=== PATIENT | female | born 1985 ===

== ENCOUNTER 2022-10-17 13:49 | Outpatient (REF) | payer MEDICAID, SELFPAY ==
[2022-10-17 16:54] LABS: TSH reflex Free T4 0.94 uIU/mL (0.32-4.0)
[2022-10-18 11:35] LABS: CT PCR NOT DETECTED (Not Detect.); NG PCR NOT DETECTED (Not Detect.)
[2022-10-18 14:05] LABS: BV Int Neg Control Negative (Negative); BV Int Pos Control Positive (Positive)
== END 2022-10-17 13:50 | disposition home or self-care (01) ==
LOC: HO.HHCL 13:49
PROVIDERS: Visit Provider Nurse Practitioner Family
DX: R10.2 Pelvic and perineal pain (principal); E03.9 Hypothyroidism, unspecified
CPT/HCPCS: 0353U; 36415; 84443; 87480; 87510; 87660

== ENCOUNTER 2022-12-07 11:50 | Outpatient (REF) | payer MEDICAID, OTHER, SELFPAY ==
[2022-12-07 13:40] LABS: Hematocrit 37.7 % (37.0-47.0); Hemoglobin 12.1 g/dl (12.0-16.0)
[2022-12-07 14:35] LABS: Estimated Average Glucose 97 mg/dL
[2022-12-07 14:47] LABS: Anion Gap 12 (12-20); Blood Urea Nitrogen 9 mg/dL (9-16); Calcium 9.8 mg/dL (8.4-10.2); Carbon Dioxide 27 mmol/L (22-29); Chloride 103 mmol/L (96-108); Cholesterol 177 mg/dL (<200); Estimated Glomerular Filt Rate > 60; Glucose Random 80 mg/dL (60-115); HDL Cholesterol 57 mg/dL (>40); LDL Cholesterol Calculated 109 mg/dL (<100); Potassium 3.8 mmol/L (3.3-5.1); Sodium 138 mmol/L (135-145); Triglycerides 59 mg/dL (<150)
[2022-12-08 07:27] LABS: HIV AB/AG Nonreactive (Nonreactive); HIV Num 1 0.05 S/CO (0.00-0.99); ~HepC Num1 0.09 S/CO (0.00-0.79); ~Hepatitis C Antibody Nonreactive (Nonreactive)
[2022-12-08 07:39] LABS: Syphilis Screen Nonreactive (Nonreactive)
== END 2022-12-07 11:51 | disposition home or self-care (01) ==
LOC: HO.HHCL 11:50
PROVIDERS: Visit Provider Nurse Practitioner Primary Care
DX: Z00.00 Encounter for general adult medical examination without abnormal findings (principal); N92.0 Excessive and frequent menstruation with regular cycle; Z11.3 Encounter for screening for infections with a predominantly sexual mode of transmission; Z13.220 Encounter for screening for lipoid disorders
CPT/HCPCS: 36415; 80048; 80061; 83036; 85014; 85018; 86780; 86803; 87389

== ENCOUNTER 2023-01-26 13:20 | Emergency (ER) | payer MEDICAID, OTHER, SELFPAY ==
--- NOTE | ~2023-01-26 | XR_ITS ---
EXAMINATION: XR CHEST CLINICAL INFORMATION: Covid positive. COMPARISON: None available. TECHNIQUE: Frontal view of the chest was obtained. FINDINGS: Normal appearance of the cardiomediastinal silhouette. No focal airspace opacities, pleural effusion or pneumothorax. No acute osseous findings. Visualized upper abdomen is within normal limits. XR/XR chest 1V IMPRESSION: No acute cardiopulmonary findings.
[2023-01-26 13:25] VITALS: BP 102/70; PULSE 76; O2SAT 100
--- NOTE | 2023-01-26 13:26 | ED.GENADULT ---
HPI - General Adult General Chief complaint: Syncope Stated complaint: SYNCOPAL EPISODE Time Seen by Provider: 01/26/23 16:50 History of Present Illness HPI narrative: 37 y/o F patient; without significant PMH; presents from the store with reported syncopal episode while exiting the facility. The patient states while in the store she began to feel dizzy and unwell. She developed epigastric abdominal pain and decided to leave the store to go home. She collapsed on leaving the store and another customer lowered her to the ground. She did not have trauma or head strike. On EMS arrival the patient had two episodes of nausea/vomiting with improvement in her epigastric abdominal pain. She then had an episode of diarrhea on arrival at [facility]. Patient has + sick contact at home. She endorses recent generalized headache, non-productive cough, and diffuse body fatigue. She denies recreational drug/alcohol/smoking. She denies chance of . She is currently at the end of her menstrual cycle, which she states is typically regular. Related Data Previous Rx's Medication Instructions Recorded ondansetron 4 mg disintegrating 4 mg PO Q8H PRN nausea and 01/26/23 tablet vomiting 7 days #14 tabs Allergies Allergy/AdvReac Type Severity Reaction Status Date / Time No Known Allergies Allergy Verified 01/26/23 13:57 Review of Systems Review of Systems: Yes all other systems are reviewed and are negative Neurologic: Denies Abnormal speech present and Denies Sensory deficit (Neuro) [facility] Past Medical History Attestation statement: The following information was validated with the patient. Source: old records reviewed Social History Social History Smoked in Last 30 Days: No Use of substances other than those prescribed or required for medical reasons: No Advance Directives: No Advance Directives Information Provided: Yes Patient : No Physical Exam ED Vital Signs: Vital Signs - 24 hr 01/26/23 13:58 01/26/23 17:09 01/26/23 17:09 Temperature 96.8 F Pulse Rate 73 73 Respiratory Rate 16 16 Blood Pressure 99/68 101/65 Pulse Oximetry 100 100 100 Oxygen Delivery Method Room Air Room Air Room Air BMI result Body Mass Index 22.3 Patient is afebrile and hemodynamically stable. Const General: cooperative, no acute distress and other (Pale) Orientation/consciousness: [facility]: Yes normal to inspection and Yes atraumatic Ears: external ears normal General nose exam: Normal nares present Mouth: Normal oral and palatal mucosa present Throat: Yes posterior oropharynx normal, Yes tonsils normal and Yes uvula midline Eyes General: appearance normal, both eyes and all related structures Pupils: Equal, round and reactive pupils present EOM: EOMs intact bilaterally Neck Neck: Yes full ROM, Yes supple and No tender Chest Chest palpation & inspection: normal inspection of the chest and normal palpation of entire chest wall Resp Effort & Inspection: normal respiratory effort, able to speak in complete sentences and no respiratory distress Auscultation: clear to auscultation bilaterally Cardio Rate: regular rate Rhythm: regular rhythm Peripheral pulses: Peripheral pulses 2+ throughout GI Inspection: Yes normal to inspection and No distended Palpation (GI): Soft to palpation, not firm, Tenderness to palpation present (GI), no guarding, not rigid and Other GI palpation findings present (Mild epigastric abdominal tenderness) Auscultation: normal bowel sounds Neuro General: patient oriented x3 Cranial nerves: Yes Equal, round and reactive pupils present Cognition (Neuro): normal cognition Speech: No Abnormal speech present Gait exam (Neuro): Normal gait present Motor exam (neuro): 5/5 motor strength present throughout Sensory Exam: No Sensory deficit (Neuro) Course Course Course Narrative: RME- 37-year-old female presents for evaluation of a syncopal episode at work today. She reports feeling mild abdominal pain, dizziness earlier. She stepped outside to get some pressure and collapsed. A bystander and caught her before she fell to the ground. Plan for EKG, labs Reevaluation(s) Reevaluation #1: Patient is afebrile and hemodynamically stable. Suspect symptoms and syncope 2/2 to viral syndrome. Ordered COVID/Flu/RSV testing. Reviewed triage labs - mild leukopenia, appropriate Hgb, negative beta hcg. UA ordered by triage - patient without dysuria, frequency, burning. Suspect contaminated sample, 3+ blood due to patient's menstruation cycle which is currently occurring. Will plan for IV to provide IVF 1L and Zofran 4mg IV. Time: 18:40 Reevaluation #2: COVID swab positive. Pending CXR. Time: 19:20 Reevaluation #3: CXR without acute disease. Patient able to PO trial. Plan: Discharge to home with PCP follow up Return precautions given Time: 19:45 Medications Administered Discontinued Medications Generic Name Dose Route Start Last Admin Trade Name Sabrina PRN Reason Stop Dose Admin Sodium Chloride 1,000 mls @ 999 mls/hr 01/26/23 17:30 01/26/23 19:31 Ns IV 01/26/23 18:30 Infused .Q1H1M REBEL Infusion Ondansetron HCl 4 mg 01/26/23 17:25 01/26/23 17:45 Ondansetron Hcl 4 Mg/2 Ml Vial IVPUSH 01/26/23 17:26 4 mg ONCE ONE Administration Medical Decision Making Lab Data 01/26/23 13:40 01/26/23 13:40 Labs: Lab Results 01/26/23 01/26/23 01/26/23 Range/Units 13:40 15:33 18:38 WBC 3.9 L (4.8-10.8) X10*3/uL RBC 4.60 (4.20-5.50) X10*6/uL Hgb 12.4 (12.0-16.0) g/dl Hct 40.1 (37.0-47.0) % MCV 87.2 (80.0-98.0) fL MCH 27.0 (27.0-33.0) pg MCHC 30.9 L (31.0-35.0) g/dl RDW 16.7 H (11.0-16.0) % Plt Count 263 (160-400) X10*3/uL MPV 9.5 (9.4-12.3) fL Immature Gran % (Auto) 0.3 (0.0-0.4) % Neut % (Auto) 52.0 (45-73) % Lymph % (Auto) 31.6 (20-40) % [place] % (Auto) 14.1 H (2-11) % Eos % (Auto) 1.5 (0-4) % Baso % (Auto) 0.5 (0-2) % Lymph # (Auto) 1.2 (1.2-4.9) X10*3/uL [place] # (Auto) 0.6 (0.1-1.2) X10*3/uL Eos # (Auto) 0.1 (0.0-0.4) X10*3/uL Baso # (Auto) 0.0 (0.0-0.2) X10*3/uL Abs Immat Gran (auto) 0.01 (0.00-0.03) X10*3/uL Absolute Neuts (auto) 2.0 (2.0-8.3) x10*3/uL Absolute Nucleated RBC 0.000 (0.0-0.012) X10*3/uL Nucleated RBC % (auto) 0.0 (0.0-0.2) /100WBC Sodium 141 (135-145) mmol/L Potassium 3.7 (3.3-5.1) mmol/L Chloride 108 (96-108) mmol/L Carbon Dioxide 27 (22-29) mmol/L Anion Gap 10 L (12-20) BUN 10 (9-16) mg/dL Creatinine 0.84 (0.5-1.4) mg/dL Estim Creat Clear Calc 78.4 Estimated GFR > 60 Random Glucose 91 (60-115) mg/dL Calcium 9.4 (8.4-10.2) mg/dL Total Bilirubin 0.2 (0.0-1.0) mg/dL Direct Bilirubin < 0.2 (0.0-0.5) mg/dL AST 21 (5-31) U/L ALT 16 (0-31) U/L Alkaline Phosphatase 50 (39-117) U/L Troponin I High Sens < 2.7 (<3.5-17.0) ng/L Total Protein 7.6 (6.5-8.0) g/dL Albumin 4.1 (3.5-5.0) g/dL Lipase 24 (8-78) U/L TSH 2.14 (0.32-4.0) uIU/mL Urine Color Yellow Urine Appearance Cloudy Urine pH 5.5 (5.0-9.0) Ur Specific [place] 1.015 (1.005-1.025) Urine Protein Negative (Neg-Trace) mg/dL Urine Glucose (UA) Negative (Negative) mg/dL Urine Ketones Negative (Negative) mg/dL Urine Blood Large (3+) H (Negative) Urine Nitrite Negative (Negative) Ur Leukocyte Esterase Trace H (Negative) Urine RBC 3-5 H (0-2) /HPF Urine WBC 6-10 H (0-5) /HPF Ur Squamous Epith Cells 11-20 (0-2) /HPF Urine Bacteria 1+ (None Seen) Hyaline Casts 0-2 (0-2) /LPF Urine Test NEGATIVE (NEGATIVE) Influenza Type A (PCR) NEGATIVE (Negative) Influenza Type B (PCR) NEGATIVE (Negative) RSV RNA Qual (PCR) NEGATIVE (Negative) SARS-CoV-2 RNA (RT-PCR) POSITIVE A (Negative) Discharge Plan Discharge Clinical Impression: COVID, Syncope Patient Disposition: Home, Self-Care Instructions: COVID-19 (Coronavirus Disease 2019) (ED) Additional Instructions: As we discussed, you were seen today for passing out. Your swab was positive for COVID. Please follow up with your PCP within 1 week to discuss your recent ED visit. Return to the ED for further episodes of passing out, chest pain, or difficulty breathing. Prescriptions: New ondansetron 4 mg tablet,disintegrating 4 mg PO Q8H PRN (Reason: nausea and vomiting) 7 Days Qty: 14 0RF Referrals: Viviana Cook TALENT ACQUISITION RELATIONSHIP MANAGER [Primary Care Provider] -
--- NOTE | 2023-01-26 13:30 | ECG_ITS ---
Test Reason : syncope Blood Pressure : / mmHG Vent. Rate : 069 BPM Atrial Rate : 069 BPM P-R Int : 148 ms QRS Dur : 080 ms QT Int : 376 ms P-R-T Axes : 039 038 024 degrees QTc Int : 402 ms Normal sinus rhythm Normal ECG No previous ECGs available Referred By: Generic ED Physician Electronically Signed By:CAMRYN OLVERA
[2023-01-26 13:45] LABS: MANUAL DIFF FLAG NO
[2023-01-26 13:47] LABS: Basophils Percent Auto 0.5 % (0-2); Eosinophils Absolute Auto 0.1 X10*3/uL (0.0-0.4); Eosinophils Percent Auto 1.5 % (0-4); Hematocrit 40.1 % (37.0-47.0); Hemoglobin 12.4 g/dl (12.0-16.0); Imm Gran Abs Auto 0.01 X10*3/uL (0.00-0.03); Imm Gran Pct Auto 0.3 % (0.0-0.4); Lymphocytes Absolute Auto 1.2 X10*3/uL (1.2-4.9); Lymphocytes Percent Auto 31.6 % (20-40); Mean Corpuscular HGB Conc 30.9 g/dl (31.0-35.0); Mean Corpuscular Volume 87.2 fL (80.0-98.0); Mean Platelet Volume 9.5 fL (9.4-12.3); Monocytes Absolute Auto 0.6 X10*3/uL (0.1-1.2); Monocytes Percent Auto 14.1 % (2-11); Platelet Count 263 X10*3/uL (160-400); Red Cell Distribution Width 16.7 % (11.0-16.0); White Blood Count 3.9 X10*3/uL (4.8-10.8)
[2023-01-26 13:48] LABS: Appearance Urine Cloudy; Color Urine Yellow; Glucose Urine UA Negative (Negative); Leukocyte Esterase Urine Trace (Negative); Nitrite Urine Negative (Negative); PH 5.5 (5.0-9.0); Specific Gravity - Urine 1.015 (1.005-1.025); UMIC TRIGGER UACC YES; UPreg QC Valid YES; Urine Blood Large (3+) (Negative); Urine Ketones Negative (Negative); Urine Pregnancy NEGATIVE (NEGATIVE); Urine Protein Negative (Neg-Trace)
[2023-01-26 13:58] VITALS: BP 99/68; PULSE 73; RESP 16; TEMP 36; O2SAT 100; BMI 22.3
[2023-01-26 14:13] LABS: Anion Gap 10 (12-20); Blood Urea Nitrogen 10 mg/dL (9-16); Calcium 9.4 mg/dL (8.4-10.2); Carbon Dioxide 27 mmol/L (22-29); Chloride 108 mmol/L (96-108); Creatinine Clr Calc Pharmacy 78.4; Estimated Glomerular Filt Rate > 60; Glucose Random 91 mg/dL (60-115); Potassium 3.7 mmol/L (3.3-5.1); Sodium 141 mmol/L (135-145)
[2023-01-26 14:25] LABS: Bacteria Urine 1+ (None Seen); Hyaline Casts Urine 0-2 /LPF (0-2); UACC Culture Trigger YES
[2023-01-26 14:58] LABS: Alanine Aminotransferase 16 U/L (0-31); Albumin Level 4.1 g/dL (3.5-5.0); Alkaline Phosphatase 50 U/L (39-117); Aspartate Amino Transferase 21 U/L (5-31); Bilirubin Direct < 0.2 mg/dL (0.0-0.5); Bilirubin Total 0.2 mg/dL (0.0-1.0); Lipase 24 U/L (8-78); Thyroid Stimulating Hormone 2.14 uIU/mL (0.32-4.0); Total Protein 7.6 g/dL (6.5-8.0)
[2023-01-26 16:02] LABS: Troponin-I High Sensitivity < 2.7 ng/L (<3.5-17.0)
[2023-01-26 17:09] VITALS: BP 101/65; PULSE 73; RESP 16; O2SAT 100
--- NOTE | 2023-01-26 17:17 | PC.NURSE ---
Pt is a&ox4 coming in after a syncopal episode. Pt states +loc, was found by bystanders at a store. Pt states she had severe abd pain then passed out. abd soft. last bowel movement was this evening. skin pwd. denies dizziness.
[2023-01-26] MEDS: 0.9 % Sodium Chloride 1,000 ML 999 ML IV (17:45)
[2023-01-26] MEDS: ondansetron HCL 4 MG/2 ML VIAL IVPUSH (17:45)
[2023-01-26 19:24] LABS: Influenza A PCR NEGATIVE (Negative); Influenza B PCR NEGATIVE (Negative); Resp Syncy Virus RNA Qual PCR NEGATIVE (Negative); SARS COV2 PCR INHOUSE POSITIVE (Negative)
--- NOTE | 2023-01-26 20:06 | PC.NURSE ---
Reviewed discharge instructions with pt. pt verbalized understanding. no respiratory distress, notified Yahaira.
[2023-01-26 20:08] VITALS: BP 104/65; PULSE 74; RESP 18; TEMP 37.2; O2SAT 98
== END 2023-01-26 20:10 | disposition home or self-care (01) ==
PROVIDERS: Physician Assistant; Emergency Provider Emergency Medicine; PCP Nurse Practitioner Primary Care
DX: U07.1 COVID-19 (principal); R55 Syncope and collapse; R42 Dizziness and giddiness; R11.2 Nausea with vomiting, unspecified; R05.9 Cough, unspecified; Z79.899 Other long term (current) drug therapy
CPT/HCPCS: 0241U; 36415; 71045; 80048; 80076; 81001; 81025; 83690; 84443; 84484; 85025; 87086; 93005; 96361; 96374; 99284; 99285; J2405

== ENCOUNTER → 2023-01-26 13:30 | Outpatient (BNV) | payer SELFPAY | PROVIDERS: Visit Provider Internal Medicine | DX: R55 Syncope and collapse (principal) | CPT/HCPCS: 93010 ==

== ENCOUNTER 2023-02-14 13:36 | Outpatient (REF) | payer MEDICAID, OTHER, SELFPAY ==
--- NOTE | ~2023-02-14 | US_ITS ---
EXAMINATION: US PELVIS CLINICAL INFORMATION: Chronic pelvic pain, menorrhagia, last menstrual period 01/23/2023. COMPARISON: None available. TECHNIQUE: Ultrasound of the pelvis is performed using both transabdominal and transvaginal transducers along with Doppler. Transvaginal imaging is performed due to inadequate visualization transabdominally. FINDINGS: The uterus measures 8.1 x 4.2 x 4.5 cm. Small amount of free fluid in the pelvis. Multiple nabothian cysts and echogenic foci characteristic of calcifications are identified in the cervix. Endometrium appears abnormal with multiple cystic spaces and thickness of 10 mm. Right ovary measures 2.2 x 2.1 x 1.6 cm, volume 3.9 mL. Left ovary measures 3.8 x 1.4 x 2.5 cm, volume 7.0 mL. Bilateral ovaries are unremarkable, although visualization is limited due to bowel gas. US/US pelvic and transvaginal IMPRESSION: 1. Endometrium appears abnormal with multiple cystic spaces and thickness of 10 mm. Gynecologic consultation and correlation with clinical exam recommended to determine further management including possible biopsy. Recommend followup ultrasound in 6-8 weeks. 2. Multiple nabothian cysts and echogenic foci characteristic of calcifications are identified in the cervix. 3. Small amount of free fluid in the pelvis. 4. Unremarkable bilateral ovaries, although visualization is limited due to bowel gas. This study was presented today, 02/20/2023, at 10:15 AM for interpretation. PSA staff will provide results to referring provider at this time.
== END 2023-02-14 13:37 | disposition home or self-care (01) ==
LOC: HO.US 13:36
PROVIDERS: PCP Nurse Practitioner Primary Care; Visit Provider Nurse Practitioner Primary Care
DX: R10.2 Pelvic and perineal pain (principal); G89.29 Other chronic pain; N92.0 Excessive and frequent menstruation with regular cycle
CPT/HCPCS: 76830; 76856

== ENCOUNTER 2023-06-28 14:40 | Outpatient (REF) | payer MEDICAID, OTHER, SELFPAY ==
[2023-06-28 16:15] LABS: MANUAL DIFF FLAG NO
[2023-06-28 16:23] LABS: Basophils Percent Auto 0.5 % (0-2); Eosinophils Absolute Auto 0.2 X10*3/uL (0.0-0.4); Eosinophils Percent Auto 3.7 % (0-4); Hematocrit 36.4 % (37.0-47.0); Hemoglobin 11.7 g/dl (12.0-16.0); Imm Gran Abs Auto 0.01 X10*3/uL (0.00-0.03); Imm Gran Pct Auto 0.2 % (0.0-0.4); Lymphocytes Absolute Auto 2.4 X10*3/uL (1.2-4.9); Lymphocytes Percent Auto 42.2 % (20-40); Mean Corpuscular HGB Conc 32.1 g/dl (31.0-35.0); Mean Corpuscular Hemoglobin 27.5 pg (27.0-33.0); Mean Corpuscular Volume 85.6 fL (80.0-98.0); Mean Platelet Volume 9.9 fL (9.4-12.3); Monocytes Absolute Auto 0.3 X10*3/uL (0.1-1.2); Monocytes Percent Auto 5.7 % (2-11); Neutrophils Absolute Auto 2.7 x10*3/uL (2.0-8.3); Neutrophils Percent Auto 47.7 % (45-73); Platelet Count 347 X10*3/uL (160-400); Red Blood Count 4.25 X10*6/uL (4.20-5.50); Red Cell Distribution Width 14.7 % (11.0-16.0); White Blood Count 5.6 X10*3/uL (4.8-10.8)
[2023-06-28 16:51] LABS: Anion Gap 13 (12-20); Blood Urea Nitrogen 12 mg/dL (9-16); Calcium 9.6 mg/dL (8.4-10.2); Carbon Dioxide 26 mmol/L (22-29); Chloride 105 mmol/L (96-108); Estimated Glomerular Filt Rate > 60; Glucose Random 93 mg/dL (60-115); Potassium 3.7 mmol/L (3.3-5.1); Sodium 140 mmol/L (135-145)
[2023-06-28 17:01] LABS: Free T4 (Free Thyroxine) 0.87 ng/dL (0.71-1.85); TSH reflex Free T4 1.55 uIU/mL (0.32-4.0)
[2023-06-28 17:20] LABS: Erythrocyte Sedimentation Rate 13 MM/HR (0-20)
[2023-06-29 19:49] LABS: Thyroglobulin Antibodies 25 IU/mL (< or = 1)
[2023-06-30 03:09] LABS: Triiodothyronine T3 Total 88 ng/dL (76-181)
[2023-07-03 14:19] LABS: Anti Nuclear Antibody Screen NEGATIVE (NEGATIVE)
== END 2023-06-28 14:41 | disposition home or self-care (01) ==
LOC: HO.HHCL 14:40
PROVIDERS: Visit Provider Internal Medicine
DX: R53.83 Other fatigue (principal); E03.9 Hypothyroidism, unspecified
CPT/HCPCS: 36415; 80048; 84439; 84443; 84480; 84481; 85025; 85652; 86038; 86800

== ENCOUNTER 2024-06-17 11:43 | Outpatient (REF) | payer MEDICAID, OTHER, SELFPAY ==
--- OUTSIDE RECORDS SUMMARY | 2024-06-17 13:54 | XMS_ITS | Encounter Summary ---
Author Organization [employer] Address [address] [place] [address] 7 [place] [address] Care Team Providers Care Manager Intensive Care Name Role Phone Viviana Cook Primary Care Provider Encounter Details Date Type Department Care Team (Latest Contact Info) Description 06/16/2024 Travel Social History Tobacco Use Types Packs/Day Years Used Date Smoking Tobacco: Never Passive Smoke Exposure: Never Smokeless Tobacco: Never Alcohol Use Standard Drinks/Week Comments Not Currently 0 (1 standard drink = 0.6 oz pur e alcohol) Housing Stability Answer Date Recorded What is your housing situation today? I do not have housing (Staying with others, in a hotel, in a long term, living outside on the street, on a beach, in a car, or in a park 11/28/[address] you li ve. Do you have problems with any of the following? None of the above 11/28/2022 Food Insecurity Answer Date Recorded Within the past 12 months, y ou worried that your food would run out before you got money to buy more: Sometimes True 2022 Within the past 12 months,th e food you bought just didn't last and you didn't have enough money to get more: Sometimes True 12/07/2022 Transportation Answer Date Recorded In the past 12 months, has l ack of transportation kept you from medical appts, meetings, work or from getting things needed for daily living? No 12/07/2022 Utilities Answer Date Recorded In the past 12 months, has t he electric, gas, oil or water company threatened to shut off services in your home? No 12/07/2022 Depression Answer Date Recorded Patient Health Questionnaire-2 Score 0 12/07/2022 Comments No Sex and Gender Information Value Date Recorded Sex Assigned at Female 10/20/2022 3:12 PM EDT Legal Sex Female 4:29 PM EDT Gender Identity Female 10/20/2022 3:12 PM EDT Sexual Orientation Straight 10/20/2022 3: 12 PM EDT documented as of this encounter Plan of Treatment Not on file documented as of this encounter Visit Diagnoses Not on filedocumented in this encounter Care Teams Manager Intensive Care Relationship Specialty Start Date End Date Viviana Cook ANP [address] [place] [phone] PCP - General Family Medicine 12/07/22 documented as of this encounter
--- OUTSIDE RECORDS SUMMARY | 2024-06-17 13:54 | XMS_ITS | Encounter Summary ---
Author Organization [employer] Address [address] [place] [address] 7 [place] [address] Care Team Providers Care Printer [employer] Name Role Phone Viviana Cook Primary Care Provider [phone] Reason for Visit * Reason Onset Date Comments Results 11/10/2022 Encounter Details Date Type Department Care Team (Late st Contact Info) Description 11/10/2022 Telephone [facility] [address] [place] [address] Viviana Cook ANP [address] [place] [address] Results Social History Tobacco Use Types Packs/Day Years Used Date Smoking Tobacco: Never Passive Smoke Exposure: Never Smokeless Tobacco: Never Comments Unknown Sex and Gender Information Value Date Recorded Sex Assigned at Female 10/20/2022 3:12 PM EDT Legal Sex Female 4:29 PM EDT Gender Identity Female 10/20/2022 3:12 PM EDT Sexual Orientation Straight 10/20/2022 3: 12 PM EDT documented as of this encounter Miscellaneous Notes * Telephone Encounter - Moo Murillo RN - 11/13/2022 12:04 PM EDT T/C to pt. Through [employer] id - [id number] for below message, pt. Was informed regarding normal lab result. Pt. Verbally agreed and understood. Pt. Advised to give call back on [phone] any questions or concerns. * Telephone Encounter - Eliana Ruiz - 11/10/2022 9:30 AM EDT Tc from pt requesting a call in regards to results on 10/17 labs. Please contact pt at [phone] (Sammarinese) documented in this encounter Plan of Treatment Not on file documented as of this encounter Visit Diagnoses Not on filedocumented in this encounter Care Teams [employer]inter [employer] Relationship Specialty Start Date End Date Viviana Cook ANP [address] [place] [phone] PCP - General Family Medicine 12/07/22 documented as of this encounter
--- OUTSIDE RECORDS SUMMARY | 2024-06-17 13:54 | XMS_ITS | Clinical Summary ---
Author Organization [employer] Address [address] [place] [address] [address] [place] [address] [address] Care [address] Collections Officer Name Role Phone Viviana Cook Primary Care Provider [phone] Allergies No known active allergies Medications omeprazole OTC (PriLOSEC OTC) 20 MG EC tablet Take 1 tablet (20 mg) by mouth 2 times daily. Do not crush, chew, or split. 60 tablet 3 Active levothyroxine (Synthroid, Levoxyl) 75 MCG tablet TAKE 1 TABLET BY MOUTH EVERY DAY BEFORE BREAKFAST 90 tablet 3 4 Active traZODone (Desyrel) 50 MG tablet Take 1 tablet (50 mg) by mouth at bedtime. 30 tablet 5 07/17/19 25 Active Active Problems Problem Noted Date Diagnosed Date Adjustment insomnia 06/16/2024 Assessment & Plan (06/16/2024 4:02 PM EDT): Most likely related to anxiety, patient did not want to disclose additional details but, she feels safe Rule out uncontrolled hypothyroidism, DM, order labs and PFTs Use trazodone 25 to 50 mg nightly, hold for daytime somnolence Follow-up with PCP Shortness of breath 06/16/2024 Assessment & Plan (06/16/2024 4:02 PM EDT): Unclear if related to panic attacks versus new onset of asthma Discussed with patient regarding relaxation techniques, CBT, visualization etc. Order PFTs and CXR and follow-up with PCP Decreased vision in both eyes 06/16/2024 Assessment & Plan (06/16/2024 4:03 PM EDT): Referred to eye clinic Fatigue 06/28/2023 Assessment & Plan (06/28/2023 1:20 PM EDT): Probably related to increased frequency of hyperglycemic episodes as evidenced by progressively high A1c. I gave her information for proper diet to prevent pre-DM/DM Order labs to r/o thyroiditis Pelvic pain 10/17/2022 Acquired hypothyroidism 10/17/2022 Encounters Date Type Department Care Team Description 06/16/2024 4:00 PM EDT Office Visit [facility] [address] [id number] Felicia Starks MD Adjustment insomnia (Primary Dx); Shortness of breath; Decreased vision in both eyes; Acquired hypothyroidism 06/16/2024 Travel from Last 3 Months Immunizations Name Administration Dates Next Due Pfizer Covid-19 Vaccine 12+ 07/04/2023 Family History Medical History Relation Name Comments Diabetes Other Hypertension Other Relation Name Status Comments Other Social History Tobacco Use Types Packs/Day Years Used Date Smoking Tobacco: Never Passive Smoke Exposure: Never Smokeless Tobacco: Never Tobacco Cessation:Counseling Given: Not Answered Alcohol Use Standard Drinks/Week Comments Not Currently 0 (1 standard drink = 0.6 oz pur e alcohol) Housing Stability Answer Date Recorded What is your housing situation today? I do not have housing (Staying with others, in a hotel, in a longterm, living outside on the street, on a [...] Orientation Straight 10/20/2022 3: 12 PM EDT Last Filed Vital Signs Vital Sign Reading Time Taken Comments Blood Pressure 107/67 06/16/2024 3:38 PM EDT Pulse 88 06/16/2024 3:38 PM EDT Temperature 36.9 ??C (98.4 ??F) 06/16/2024 3:38 PM ED T Respiratory Rate 16 06/16/2024 3:38 PM EDT Oxygen Saturation 99% 06/16/2024 3:38 PM EDT Inhaled Oxygen Concentration - - Weight 63 kg (139 lb) 06/16/2024 3:38 PM EDT Height 162.6 cm (5' 4 ) 06/28/2023 12:33 PM EDT Body Mass Index 23.86 06/28/2023 12:33 PM EDT Plan of Treatment Health Maintenance Due Date Last Done Comments Alcohol/Substance Use Screening 1996 Family Planning (PISQ) 10/20/1999 DTaP/Tdap/Td Vaccines (1 - Tdap) 10/20/2003 Hepatitis B Vaccines (1 of 3 - 19+ 3-dose series) 10/20/2003 COVID-19 Vaccine (2 - 2023-2 5 season) 2023 07/04/2023 Influenza Vaccine (#1) 2023 SDOH Screening 11/29/2023 11/28/2022 Depression Screening 12/08/2023 12/07/2022, 12/07/2022 Tobacco Screening 06/27/2024 06/28/2023 Cervical Cancer Screening 11/13/2028 HPV/Cotest 11/13/2028 Pap Smear 11/13/2028 11/14/2023 Zoster Vaccines (1 of 2) 2034 RSV Patients and Patients Aged 60 years or older (1 - 1-dose 75+ series) 10/20/2059 HIV Screening Completed 12/07/2022 Hepatitis C Screening Completed 12/07/2022 HIB Vaccines Aged Out No longer eligi ble based on patient's age to complete this topic HPV Vaccines Aged Out No longer eligi ble based on patient's age to complete this topic Hepatitis A Vaccines Aged Out No long er eligible based on patient's age to complete this topic IPV Vaccines Aged Out No longer eligi ble based on patient's age to complete this topic Meningococcal Vaccine Aged Out No dafne michael eligible based on patient's age to complete this topic Pneumococcal Vaccine: Pediatrics (0 to 5 Years) and At-Risk Patients (6 to 49) Years) Aged Out No longer eligible b ased on patient's age to complete this topic RSV under 20 months Aged Out No longe r eligible based on patient's age to complete this topic Rotavirus Vaccines Aged Out No longer eligible based on patient's age to complete this topic Procedures Procedure Name Priority Date/Time Associated Diagnosis Comments PAP SMEAR Routine 11/14/2023 12:00 AM EDT HEPATITIS C AB W/REFL TO HCV RNA, QN, PCR Routine 12/07/2022 12:01 PM EDT Routine screening for STI (sexually transmitted infection) HIV ANTIBODY/ANTIGEN ([place] [facility]) Routine 12/07/2022 12:01 PM EDT from Last 3 Months or Most Recently Relevant to Health Maintenance Results * Pap Smear (11/14/2023 12:00 AM EDT) Swab us Historical Provider LAB CYTOLOGY ORDERABLES F inal Result EXTERNAL LAB * HIV Ab/Ag ([place] [facility]) (12/07/2022 12:01 PM EDT) HIV AB/AG Nonreactive Nonreactive [facility] Comment:HIV-1 p24 Ag and/or HIV-1/HIV-2 Ab not detected.A test result that is nonreactive does not exclude thepossibility of exposure to or infection with HIV-1 and/orHIV-2. Nonreactive results in this assay for individualswith prior exposure to HIV-1 and/or HIV-2 may be due toantigen and antibody levels that are below the limit ofdetection of this assay.The [employer] HIV Ag/Ab Combo assay result andsupplemental assay results should be interpreted inconjunction with the patient's clinical presentation,history and other laboratory results. If the results areinconsistent with clinical evidence, additional testing issuggested to confirm the result. 12/07/2022 12:0 1 PM EDT 12/07/2022 1:11 PM EDT Viviana Cook [facility] LAB BLOOD ORDERABLES Final Resul t Performing Organization Address [facility] de Phone Number [facility] [address] [place] [phone] * Hepatitis C Antibody with Reflex to HCV, RNA, Quantitative, Real-Time PCR (12/07/2022 12:01 PM EDT) Hepatitis C Antibody Nonreactive Nonreactive [facility] Comment:Antibodies to HCV no t detected; does not exclude early acuteHCV infection. Blood Venous blood specimen / Unknown 12/07/2022 12:01 PM EDT 12/07/2022 1:11 PM EDT Viviana Cook [facility] LAB BLOOD ORDERABLES Final Resul t Performing Organization Address [facility] Co de Phone Number [facility] [address] [place] [phone] from Last 3 Months or Most Recently Relevant to Health Maintenance Insurance [employer] F[employer] [facility] HSN FULL Care Teams Court Collections Officer Relationship Specialty Start Date End Date Viviana Cook ANP [address] [place] [phone] PCP - General Family Medicine 12/07/22
--- OUTSIDE RECORDS SUMMARY | 2024-06-17 13:54 | XMS_ITS | Encounter Summary ---
Author Organization [employer] Address [address] [place] [address] 7[address] [place] [address] Care Team Providers Care Sheet Ironworker Name Role Phone Viviana Cook Primary Care Provider [phone] Reason for Referral * Consultation (Routine) - Authorized Specialty Diagnoses / Procedures Referred By Donato guerrero Referred To Contact Optometry Diagnoses Decreased vision in both eyes Felicia Starks MD [address] [place] [address] Phone: tel: fax: [facility] [address] [place] [address] Phone: tel: fax: Referral ID Status Reason Start Date Expiration Date Visits Requested Visits Authorized [id number] Authorized Consult and Treat 06/16/2024 06/16/2025 1 1 * PFT (Routine) - Authorized Specialty Diagnoses / Procedures Referred By Donato guerrero Referred To Contact Diagnoses Shortness of breath Procedures Pulmonary function testing Felicia Starks MD [address] [place] [address] Phone: tel: fax: [facility] [address] [place], [place] Phone: tel: fax: Referral ID Status Reason Start Date Expiration Date V isits Requested Visits Authorized [id number] Authorized 06/16/2024 06/16/2025 1 1 Encounter Details Date Type Department Care Team (Latest Contact Info) Description 06/16/2024 4:00 PM EDT Office Visit [facility] [address] [place] [address] Felicia Starks MD [address] [place] [address] Adjustment insomnia (Primary Dx); Shortness of breath; Decreased vision in both eyes; Acquired hypothyroidism Social History Tobacco Use Types Packs/Day Years Used Date Smoking Tobacco: Never Passive Smoke Exposure: Never Smokeless Tobacco: Never Alcohol Use Standard Drinks/Week Comments Not Currently 0 (1 standard drink = 0.6 oz pur e alcohol) Housing Stability Answer Date Recorded What is your housing situation today? I do not have housing (Staying with others, in a hotel, in a [place] [facility] [place], living outside on the street, on a [...] PM EDT documented as of this encounter Last Filed Vital Signs Vital Sign Reading Time Taken Comments Blood Pressure 107/67 06/16/2024 3:38 PM EDT Pulse 88 06/16/2024 3:38 PM EDT Temperature 36.9 ??C (98.4 ??F) 06/16/2024 3:38 PM ED T Respiratory Rate 16 06/16/2024 3:38 PM EDT Oxygen Saturation 99% 06/16/2024 3:38 PM EDT Inhaled Oxygen Concentration - - Weight 63 kg (139 lb) 06/16/2024 3:38 PM EDT Height - - Body Mass Index 23.86 06/28/2023 12:33 PM EDT documented in this encounter Progress Notes * Felicia Starks MD - 06/16/2024 4:00 PM EDT SUBJECTIVE: Audrey Ruiz is a 38 y.o. year old female who presents for Walk In [facility]/SOB . Denies recent illness, injury, or hospitalization. Acute Concerns: Insomnia: She has been having difficulty falling asleep for the past 2 months. She is also waking up frequently overnight, she is very tired during the daytime, denies persistent headache, VERNON, chestpain, polydipsia or polyuria. She is taking levothyroxine daily and empty stomach. She tells me that she has had increased anxiety for a situation lately, she tells me she feels safe at home. Episode of sudden shortness of breath overnight, waking up of breath for the past 2 weeks, symptomsimproved but she sits up and drink some water. She has some palpitation, no fever, no chills no, noheadaches. She has a history of asthma during and episode of bronchitis more than 10 years ago, never needed albuterol after that. 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 Blurred vision, has difficulty mainly for short distance and reading for the past 3 to 4 months. Last eye exam was more than 5 years ago Social History Social History Narrative Not on file Patient Active Problem List Diagnosis Pelvic pain Acquired hypothyroidism Fatigue Adjustment insomnia Shortness of breath Decreased vision in both eyes Family History Problem Relation Name Age of Onset Hypertension Other Diabetes Other Review of Systems Constitutional: Negative for chills, fatigue and fever. HENT: Negative for congestion, ear pain, nosebleeds, rhinorrhea, sinus pressure, sore throat and trouble swallowing. Eyes: Positive for visual disturbance. Negative for pain and discharge. Respiratory: Positive for shortness of breath. Negative for cough and chest tightness. Cardiovascular: Negative for chest pain, palpitations and leg swelling. Gastrointestinal: Negative for abdominal pain, blood in stool, constipation, diarrhea and nausea. Endocrine: Negative for polydipsia and polyuria. Genitourinary: Negative for dysuria, frequency, genital sores, pelvic pain and vaginal discharge. Musculoskeletal: Negative for back pain and neck pain. Skin: Negative for rash. Allergic/Immunologic: Negative for environmental allergies. Neurological: Negative for dizziness, seizures, weakness, light-headedness and headaches. Hematological: Negative for adenopathy. Psychiatric/Behavioral: Positive for sleep disturbance. Negative for agitation, behavioral problems, self-injury and suicidal ideas. The patient is nervous/anxious. OBJECTIVE: Vitals: 06/16/24 1538 BP: 107/67 Pulse: 88 Resp: 16 Temp: 98.4 ??F (36.9 ??C) SpO2: 99% Physical Exam HENT: Right Ear: Tympanic membrane and ear canal normal. Left Ear: Tympanic membrane and ear canal normal. Mouth/Throat: Mouth: Mucous membranes are moist. Pharynx: No oropharyngeal exudate or posterior oropharyngeal erythema. Eyes: Pupils: Pupils are equal, round, and reactive to light. Cardiovascular: Rate and Rhythm: Regular rhythm. Pulses: Normal pulses. Heart sounds: Normal heart sounds. No murmur heard. Pulmonary: Breath sounds: Normal breath sounds. Abdominal: General: Bowel sounds are normal. Palpations: Abdomen is soft. Tenderness: There is no abdominal tenderness. Musculoskeletal: General: Normal range of motion. Cervical back: Neck supple. Skin: General: Skin is warm. Neurological: General: No focal deficit present. Mental Status: She is alert and oriented to person, place, and time. Psychiatric: Mood and Affect: Mood normal. Behavior: Behavior normal. Problem List Items Addressed This Visit Adjustment insomnia - Primary Most likely related to anxiety, patient did not want to disclose additional details but, she feels safe Rule out uncontrolled hypothyroidism, DM, order labs and PFTs Use trazodone 25 to 50 mg nightly, hold for daytime somnolence Follow-up with PCP Relevant Orders Basic Metabolic Panel Shortness of breath Unclear if related to panic attacks versus new onset of asthma Discussed with patient regarding relaxation techniques, CBT, visualization etc. Order PFTs and CXR and follow-up with PCP Relevant Orders Pulmonary function testing XR Chest 2 Views Decreased vision in both eyes Referred to eye clinic Relevant Orders Referral to Optometry Acquired hypothyroidism Relevant Orders TSH with Reflex to Free T4 Follow Up: Current Outpatient Medications on File Prior to Visit Medication Sig Dispense Refill levothyroxine (Synthroid, Levoxyl) 75 MCG tablet TAKE 1 TABLET BY MOUTH EVERY DAY BEFORE BREAKFAST 90 tablet 3 omeprazole OTC (PriLOSEC OTC) 20 MG EC tablet Take 1 tablet (20 mg) by mouth 2 times daily. Do not crush, chew, or split. 60 tablet 0 No current facility-administered medications on file prior to visit. documented in this encounter Miscellaneous Notes * Assessment & Plan Note - Felicia Starks MD - 06/16/2024 4:03 PM EDT Associated Problem(s): Decreased vision in both eyes Referred to eye clinic * Assessment & Plan Note - Felicia Starks MD - 06/16/2024 4:02 PM EDT Associated Problem(s): Shortness of breath Unclear if related to panic attacks versus new onset of asthma Discussed with patient regarding relaxation techniques, CBT, visualization etc. Order PFTs and CXR and follow-up with PCP * Assessment & Plan Note - Felicia Starks MD - 06/16/2024 4:02 PM EDT Associated Problem(s): Adjustment insomnia Most likely related to anxiety, patient did not want to disclose additional details but, she feels safe Rule out uncontrolled hypothyroidism, DM, order labs and PFTs Use trazodone 25 to 50 mg nightly, hold for daytime somnolence Follow-up with PCP documented in this encounter Plan of Treatment Scheduled Orders Name Type Priority Associated Diagnoses Orde r Schedule Basic Metabolic Panel Lab Routine Adjustment insomnia Expected: 06/16/2024 (Approximate), Expires: 06/16/2025 TSH with Reflex to Free T4 Lab Routine Acquired hypothyroidism Expected: 06/16/2024 (Approximate), Expires: 06/16/2025 Pulmonary function testing PFT Routine Shortness of breath Expected: 06/16/2024 (Approximate), Expires: 12/16/2024 XR Chest 2 Views Imaging Routine Shortness of breath Ordered: 06/16/2024 Scheduled Referrals Name Type Priority Associated Diagnoses Orde r Schedule Referral to Optometry Outpatient Referral Routine Decreased vision in both eyes Expected: 06/16/2024 (Approximate), Expires: 06/16/2025 documented as of this encounter Visit Diagnoses Diagnosis Adjustment insomnia- Primary Insomnia, unspecified Shortness of breath Decreased vision in both eyes Moderate or severe vision impairment, both eyes, impairment level not further specified Acquired hypothyroidism Unspecified hypothyroidism documented in this encounter Care Teams Sheet Ironworker Relationship Specialty Start Date End Date Viviana Cook ANP [address] [place] [address] PCP - General Family Medicine 12/07/22 documented as of this encounter
--- OUTSIDE RECORDS SUMMARY | 2024-06-17 13:54 | XMS_ITS | Clinical Summary ---
Author Organization [facility] Address [address] [place] [address] Care Team Providers Care Balance Clerk Name Role Phone Viviana Cook Primary Care Provider [phone] Allergies No known active allergies Medications levothyroxine (SYNTHROID, LEVOTHROID) 75 mcg tablet SMARTSI Tablet(s) By Mouth Every Morning 10/12/2023 Active norethindrone-e .estradioL-iron (Junel FE ,) 1.5 mg-30 mcg (21)/75 mg (7) per tablet Take 1 tablet by mouth once a day. 84 tablet 3 12/07/2023 Active Social History Tobacco Use Types Packs/Day Years Used Date Smoking Tobacco: Never Smokeless Tobacco: Never Tobacco Cessation:Counseling Given: Not Answered Alcohol Use Standard Drinks/Week Comments Never 0 (1 standard drink = 0.6 oz pur e alcohol) Comments No Sex and Gender Information Value Date Recorded Sex Assigned at Female 11/13/2023 10:46 AM EDT Legal Sex Female 1:09 PM EDT Gender Identity Female 11/13/2023 5:05 PM EDT Sexual Orientation Bisexual 11/13/2023 5: 05 PM EDT Last Filed Vital Signs Vital Sign Reading Time Taken Comments Blood Pressure 116/64 11/14/2023 4:36 PM EDT Pulse - - Temperature - - Respiratory Rate - - Oxygen Saturation - - Inhaled Oxygen Concentration - - Weight 64.9 kg (143 lb) 11/14/2023 4:36 PM EDT Height - - Body Mass Index - - Plan of Treatment Health Maintenance Due Date Last Done Comments HIV Screening 1984 HPV and Pap Smear 1984 Varicella Vaccines (1 of 2 - 13+ 2-dose series) 1997 Hepatitis B Vaccines (1 of 3 - 19+ 3-dose series) 10/20/2003 DTaP,Tdap,and Td Vaccines (1 - Tdap) 2006 COVID-19 Vaccine (2 - 2023-2 5 season) 2023 07/04/2023 Alcohol/Substance Use Screening 02/20/2024 Depression Screening and Follow-Up 02/20/2024 Social Drivers of Health Annual Screening 02/20/2024 Influenza Vaccine (Season Ended) 2024 Chlamydia Screening 11/13/2024 11/14/2023 Cervical Cancer Screening 11/13/2026 Pap Smear 11/13/2026 11/14/2023, 11/14/2023 RSV Vaccine (60+ years old and patients) (1 - 1-dose 75+ series) 10/20/2059 Hepatitis C Screening Completed 12/07/2022 Pneumococcal Vaccine: Pediatric (0-5 Years) and At-Risk Patients (6-50 Years) Aged Out No longer eligible based on patient's age to complete this topic Procedures * Due to [place] [employer] law, this organization might not be sharing negative HIV tests. Procedure Name Priority Date/Time Associated Diagnosis Comments PAP Routine 11/14/2023 5:16 PM EDT Cervical cancer screening CHLAMYDIA/NEISSERIA GONORRHEA RNA Routine 11/14/2023 5:16 PM EDT Pelvic pain from Last 3 Months or Most Recently Relevant to Health Maintenance Results * Due to [place] [employer] law, this organization might not be sharing negative HIV tests. * Chlamydia/Neisseria gonorrhoeae RNA (11/14/2023 5:16 PM EDT) Chlamydia trachomatis RNA, TMA NOT DETECTED NOT DETECTED 11/15/2023 6:04 PM EDT [facility] Neisseria Gonorrhoeae RNA, TMA NOT DETECTED NOT DETECTED 11/15/2023 6:04 PM EDT [facility] Comment: The analytical performance characteristics of this assay, when used to test SurePath(TM) specimens have been determined by [employer]. The modifications have not been cleared or approved by the FDA. This assay has been validated pursuant to the CLIA regulations and is used for clinical purposes. For additional information, please refer to https://education.[employer]/faq/KPU247 (This link is being provided for information/ educational purposes only.) Swab Cervix uteri structure / Unknown Non-Blood Collection / Unknown 11/14/2023 5:16 PM EDT 11/14/2023 6:09 PM EDT Narrative [facility] - 11/15/2023 6:04 PM EDT [facility] Received Date:[id number] us Mya Juarez MD LAB URINE ORDERABLES Final Resul t [facility] [address], [place] [address], [facility] [address], [place] [address], from Last 3 Months or Most Recently Relevant to Health Maintenance Insurance [facility] HS/FREE CARE Care Teams Balance Clerk Relationship Specialty Start Date End Date Viviana Cook [address] [place] [address] PCP - General 09/28/23
--- OUTSIDE RECORDS SUMMARY | 2024-06-17 13:54 | XMS_ITS | Encounter Summary ---
Author Organization [employer] Address [address] [facility] 7t [place] [address] Care Team Providers Care Foreman Shipping Department Name Role Phone Viviana Cook Primary Care Provider [phone] Encounter Details Date Type Department Care Team (Late st Contact Info) Description 12/10/[address] [facility] [address] [place], [place] [phone] Viviana Cook ANP [address] [place] [address] Social History Tobacco Use Types Packs/Day Years Used Date Smoking Tobacco: Never Passive Smoke Exposure: Never Smokeless Tobacco: Never Alcohol Use Standard Drinks/Week Comments Not Currently 0 (1 standard drink = 0.6 oz pur e alcohol) Housing Stability Answer Date Recorded What is your housing situation today? I do not have housing (Staying with others, in a hotel, in a fdc, living outside on the street, on a [...] on file documented as of this encounter Procedures Procedure Name Priority Date/Time Associated Diagnosis Comments PAP SMEAR Routine 11/14/2023 12:00 AM EDT documented in this encounter Results * Pap Smear (11/14/2023 12:00 AM EDT) Swab us Historical Provider MD LAB CYTOLOGY ORDERABLES F inal Result EXTERNAL LAB documented in this encounter Visit Diagnoses Not on filedocumented in this encounter Care Teams Foreman Shipping Department Relationship Specialty Start Date End Date Viviana Cook ANP [address] [place] [id number] PCP - General Family Medicine 12/07/22 documented as of this encounter
--- OUTSIDE RECORDS SUMMARY | 2024-06-17 13:54 | XMS_ITS | Clinical Summary ---
Author Organization [facility] Address [address] [place] [id number] Care Team Providers Care Requirements Manager Name Role Phone Unavailable Primary Care Provider Unavailabl e Social History Tobacco Use Types Packs/Day Years Used Date Smoking Tobacco: Never Assessed Comments Unknown Sex and Gender Information Value Date Recorded Sex Assigned at Not on file Legal Sex Female 11:37 AM EDT Gender Identity Not on file Sexual Orientation Not on file Plan of Treatment Health Maintenance Due Date Last Done Comments DTaP,Tdap,and Td Vaccines (1 - Tdap) 10/20/2003 Hepatitis B Vaccines (1 of 3 - 19+ 3-dose series) 10/20/2003 Cervical Cancer Screening: P ap Smear 2005 COVID-19 Vaccine (2023-2 5 season) 2023 Depression Screening 11/29/2023 HIV Screening 11/29/2023 Hepatitis C Screening 11/29/2023 Social Influencers of Health Screening 11/29/2023 Influenza Vaccine (Season Ended) 2024 HIB Vaccines Aged Out No longer eligi [...] on patient's age to complete this topic MMR Vaccines Aged Out No longer eligi ble based on patient's age to complete this topic Meningococcal ACWY Vaccine Aged Out N o longer eligible based on patient's age to complete this topic Meningococcal B Vaccine Aged Out No l onger eligible based on patient's age to complete this topic Pneumococcal Vaccine: Pediat rics (0 to 5 Years) and At-Risk Patients (6 to 64 Years) Aged Out No longer eligible b ased on patient's age to complete this topic RSV Immunization Patients Un zhang 20 months Aged Out No longer eligible b ased on patient's age to complete this topic Varicella Vaccines Aged Out No longer eligible based on patient's age to complete this topic
--- OUTSIDE RECORDS SUMMARY | 2024-06-17 13:54 | XMS_ITS | Referral Summary ---
Author Organization [facility] Address [address] [place] [address] Care Team Providers Care Pulling Machine Operator Name Role Phone Viviana Cook Primary Care Provider [phone] Allergies No known active allergies Medications levothyroxine (SYNTHROID, LEVOTHROID) 75 mcg tablet SMARTSI Tablet(s) By Mouth Every Morning 10/12/2023 Active norethindrone-e .estradioL-iron (Junel FE , ,) 1.5 mg-30 mcg (21)/75 mg (7) [...] Mass Index - - Plan of Treatment Not on file Procedures * Due to [place] state law, this organization might not be sharing negative HIV tests. Procedure Name Priority Date/Time Associated Diagnosis Comments PAP Routine 11/14/2023 5:16 PM EDT Cervical cancer screening CHLAMYDIA/NEISSERIA GONORRHEA RNA Routine 11/14/2023 5:16 PM EDT Pelvic pain from Last 3 Months or Most Recently Relevant to Health Maintenance Results * Due to [facility] law, this organization might not be sharing negative HIV tests. * Chlamydia/Neisseria gonorrhoeae RNA (11/14/2023 5:16 PM EDT) Chlamydia trachomatis RNA, TMA NOT DETECTED NOT DETECTED 11/15/2023 6:04 PM EDT [facility] Neisseria Gonorrhoeae RNA, TMA NOT DETECTED NOT DETECTED 11/15/2023 6:04 PM EDT [facility] Comment: The analytical performance characteristics of this assay, when used to test SurePath(TM) specimens have been determined by [employer]. The modifications have not been cleared or approved by the FDA. This assay has been validated pursuant to the CLIA regulations and is used for clinical purposes. For additional information, please refer to https://education.[employer]/faq/NWP366 (This link is being provided for information/ educational purposes only.) Swab Cervix uteri structure / Unknown Non-Blood Collection / Unknown 11/14/2023 5:16 PM EDT 11/14/2023 6:09 PM EDT Narrative [facility] - 11/15/2023 6:04 PM EDT [facility] Received Date: us Mya Juarez MD LAB URINE ORDERABLES Final Resul t [facility] [address] [facility] 3rd Floor, [place] [address], [place] [phone] [facility] [address] [facility] 3rd Floor, [place] [address], [place] [phone] from Last 3 Months or Most Recently Relevant to Health Maintenance Insurance [employer] HSNO/FREE CARE Care Teams Pulling Machine Operator Relationship Specialty Start Date End Date Viviana Cook [address] [place] [id number] PCP - General 09/28/23
--- OUTSIDE RECORDS SUMMARY | 2024-06-17 13:54 | XMS_ITS | Encounter Summary ---
Author Organization [employer] Address [address] [facility] 7t [place] [address] Care Team Providers Care Black Oxide Coating Equipment Tender Name Role Phone Viviana Cook Primary Care Provider [phone] Reason for Visit * Reason Onset Date Comments Referral 10/08/2023 Encounter Details Date Type Department Care Team (Late st Contact Info) Description 10/08/2023 Telephone [facility] [address] [place], [place] [phone] Viviana Cook ANP [address] [place] [address] Referral Social History Tobacco Use Types Packs/Day Years [...] t he electric, gas, oil or water [employer] threatened to shut off services in your [...] encounter Miscellaneous Notes * Telephone Encounter - Justin Blank - 10/08/2023 9:14 AM EDT Tc from patier[facility] calling in regards to the referral for bag sewer states would like something closer for commute documented in this encounter Plan of Treatment Not on file documented as of this encounter Visit Diagnoses Not on filedocumented in this encounter Care Teams Black Oxide Coating Equipment Tender Relationship Specialty Start Date End Date Viviana Cook ANP [address] [place] [id number] PCP - General Family Medicine 12/07/22 documented as of this encounter
[2024-06-17 14:00] LABS: Anion Gap 13 (12-20); Blood Urea Nitrogen 9 mg/dL (9-16); Calcium 9.1 mg/dL (8.4-10.2); Carbon Dioxide 26 mmol/L (22-29); Chloride 107 mmol/L (96-108); Estimated Glomerular Filt Rate > 60; Glucose Random 72 mg/dL (60-115); Potassium 3.8 mmol/L (3.3-5.1); Sodium 142 mmol/L (135-145)
[2024-06-17 14:18] LABS: TSH reflex Free T4 1.15 uIU/mL (0.32-4.0)
== END 2024-06-17 11:44 | disposition home or self-care (01) ==
LOC: HO.HHCL 11:43
PROVIDERS: Visit Provider Internal Medicine
DX: F51.02 Adjustment insomnia (principal); E03.9 Hypothyroidism, unspecified
CPT/HCPCS: 36415; 80048; 84443

== ENCOUNTER 2024-10-06 17:44 | Outpatient (REF) | payer MEDICAID, OTHER, SELFPAY ==
[2024-10-06 20:43] LABS: Bacterial Vaginosis PCR NEGATIVE (Negative); Candida Group PCR NOT DETECTED (Not Detect); Candida glab krusei PCR NOT DETECTED (Not Detect); Trichomonas vaginalis PCR NOT DETECTED (Not Detect)
[2024-10-06 21:50] LABS: CT PCR NOT DETECTED (Not Detect.); NG PCR NOT DETECTED (Not Detect.)
== END 2024-10-06 17:45 | disposition home or self-care (01) ==
LOC: HO.LNP 17:44
PROVIDERS: Visit Provider Nurse Practitioner Primary Care
DX: Z11.3 Encounter for screening for infections with a predominantly sexual mode of transmission (principal); Z11.8 Encounter for screening for other infectious and parasitic diseases; R10.2 Pelvic and perineal pain
CPT/HCPCS: 81515; 87491; 87591

== ENCOUNTER 2024-10-09 11:31 | Outpatient (REF) | payer MEDICAID, OTHER, SELFPAY ==
[2024-10-09 13:29] LABS: Anion Gap 11 (12-20); Blood Urea Nitrogen 8 mg/dL (9-16); Calcium 9.2 mg/dL (8.4-10.2); Carbon Dioxide 25 mmol/L (22-29); Chloride 108 mmol/L (96-108); Estimated Glomerular Filt Rate > 60; Potassium 3.9 mmol/L (3.3-5.1); Sodium 140 mmol/L (135-145)
== END 2024-10-09 11:32 | disposition home or self-care (01) ==
LOC: HO.HHCL 11:31
PROVIDERS: PCP Nurse Practitioner Primary Care; Visit Provider Nurse Practitioner Primary Care
DX: E87.6 Hypokalemia (principal)
CPT/HCPCS: 36415; 80048

== ENCOUNTER 2024-12-09 13:23 | Outpatient (REF) | payer MEDICAID, OTHER, SELFPAY ==
[2024-12-09 14:24] LABS: Bacterial Vaginosis PCR NEGATIVE (Negative); Candida Group PCR NOT DETECTED (Not Detect); Candida glab krusei PCR NOT DETECTED (Not Detect); Trichomonas vaginalis PCR NOT DETECTED (Not Detect)
[2024-12-09 14:57] LABS: CT PCR NOT DETECTED (Not Detect.); NG PCR NOT DETECTED (Not Detect.)
== END 2024-12-09 13:24 | disposition home or self-care (01) ==
LOC: HO.HHCLNP 13:23
PROVIDERS: Visit Provider Family Medicine
DX: N90.89 Other specified noninflammatory disorders of vulva and perineum (principal); Z20.2 Contact with and (suspected) exposure to infections with a predominantly sexual mode of transmission
CPT/HCPCS: 81515; 87491; 87591

== ENCOUNTER 2025-02-14 15:06 | Emergency (ER) | payer MEDICAID, OTHER, SELFPAY ==
--- OUTSIDE RECORDS SUMMARY | 2025-02-09 19:00 | XMS_ITS | Encounter Summary ---
Author Organization [employer] Address [address] [facility] 7[address] [place] [address] Care Team Providers Care Supervisor Hot Dip Plating Name Role Phone Viviana Cook JESSIE Primary Care Provider [phone] Reason for Visit * Reason Comments Walk-In Allergy reaction, he adaches x5 days Encounter Details Date Type Department Care Team ([facility] st Contact Info) Description 02/09/2025 7:00 PM EST Office Visit [facility] [address] [place], [place] [phone] Neyda Ybarra FNP [address] [place] [address] Rash Social History Tobacco Use Types Packs/Day Years Used Date Smoking Tobacco: Never Passive Smoke Exposure: Never Smokeless Tobacco: Never Alcohol Use Standard Drinks/Week Comments Not Currently 0 (1 standard drink = 0.6 oz pur e alcohol) Housing Stability Answer Date Recorded What is your housing situation today? I do not have housing (Staying with others, in a hotel, in a care home, living outside on the street, on a [...] Answer Date Recorded Patient Health Questionnaire-2 Score 3 10/06/2024 Comments No Sex and Gender Information Value Date Recorded Sex Assigned at Female 10/20/2022 3:12 PM EDT Legal Sex Female 4:29 PM EDT Gender Identity Female 10/20/2022 3:12 PM EDT Sexual Orientation Bisexual 10/03/2024 1: 17 PM EDT documented as of this encounter Last Filed Vital Signs Vital Sign Reading Time Taken Comments Blood Pressure 114/73 02/09/2025 6:42 PM EST Pulse 78 02/09/2025 6:42 PM EST Temperature 36.6 C (97.9 F) 02/09/2025 6:42 PM EST Respiratory Rate 18 02/09/2025 6:42 PM EST Oxygen Saturation 100% 02/09/2025 6:42 PM EST Inhaled Oxygen Concentration - - Weight 60.3 kg (133 lb) 02/09/2025 6:42 PM EST Height - - Body Mass Index 22.83 01/05/2025 10:21 AM EST documented in this encounter Progress Notes * LUZ Ngo - 02/09/2025 7:00 PM EST SUBJECTIVE Audrey Ruiz is a 39 y.o. female who presents for dermatitis and Allergic Reactions - History of recurrent skin itching and redness, primarily affecting the same area - Initial episode occurred approximately 2 months prior to the visit, with similar symptoms - Most recent episode began acutely 1 week prior to the visit, described as more severe, with intense itching and redness, especially at night, interfering with sleep - Previous episodes included burning sensation and pruritus, with involvement of the private area - Reports missing two cms expert appointments due to insurance issues; new insurance expected to be active February 19 - Prior treatment with cetirizine and steroids about 3 weeks ago, with incomplete resolution of symptoms - Reports use of topical creams, including coconut and Goicochea, with Goicochea providing some relief - States that Benadryl (received from [facility]) provided partial relief; uncertain about the exact medication name - Denies sedative effect from Benadryl-equivalent medication - No improvement with prednisone (4 tablets over 4 days) - Reports sensitivity to detergents; has tried multiple brands without improvement - No history of food triggers; describes herself as selective with food intake - No pets reported Review of Systems Constitutional: Negative for chills and fever. Respiratory: Negative for cough, chest tightness, shortness of breath and wheezing. Cardiovascular: Negative for chest pain and palpitations. Skin: Allergic rash around the neck on the left Psychiatric/Behavioral: Negative for suicidal ideas. Allergies[1] OBJECTIVE Vitals: 02/09/25 1842 BP: 114/73 BP Location: Right arm Patient Position: Sitting BP Cuff Size: Adult Pulse: 78 Resp: 18 Temp: 97.9 ??F (36.6 ??C) TempSrc: Oral SpO2: 100% Weight: 133 lb (60.3 kg) Physical Exam Vitals reviewed. Constitutional: Appearance: Normal appearance. HENT: Head: Atraumatic. Neck: Comments: Allergic rash on the left side of the neck Cardiovascular: Rate and Rhythm: Normal rate and regular rhythm. Pulses: Normal pulses. Heart sounds: Normal heart sounds. No murmur heard. Pulmonary: Effort: Pulmonary effort is normal. Breath sounds: Normal breath sounds. No wheezing. Neurological: Mental Status: She is alert and oriented to person, place, and time. Psychiatric: Mood and Affect: Mood normal. Behavior: Behavior normal. Assessment/Plan Problem List Items Addressed This Visit None Visit Diagnoses Rash - Recurrent rash with erythema and pruritus, likely allergic in etiology. - Pruritus associated with rash, not controlled by previous antihistamines (cetirizine ) - Multiple allergic reactions and recurrent rash warrant specialist evaluation.patient has pending referral to cms expert. Patient aware and yet to schedule appointment . Advise patient the importanceof meeting with the cms expert - Prescribed hydroxyzine, 1 tablet every 6 hours as needed for pruritus, up to 4 times daily. Advised to avoid known triggers and keep a diary of exposures. No topical cream prescribed at this time. Relevant Orders POCT Rapid Covid-19 BinaxNOW (Completed) POCT Rapid Influenza A PICHARDO ID NOW (Completed) POCT Rapid Influenza B PICHARDO ID NOW (Completed) POCT Rapid Strep A PICHARDO ID NOW (Completed) This note was drafted using Rhapso (AI) technology. The patient/patient's guardian has been informed and has consented to the use of this technology: Yes Future Appointments Date Time Provider Department Center 03/26/2025 1:00 PM JESSIE Hunter MEDICINE [facility] [1] Allergies Allergen Reactions Azithromycin Anaphylaxis Ciprofloxacin Anaphylaxis Pt purchased med in DR Ibuprofen Anaphylaxis Metronidazole Itching [place] skin itching all over when treated with vaginal metronidazole documented in this encounter Plan of Treatment Upcoming Encounters Date Type Department Care Team (Late st Contact Info) Description 03/26/2025 1:00 PM EST Office Visit [facility] [address] [place] [address] Viviana Cook ANP [address] [place] [address] documented as of this encounter Procedures Procedure Name Priority Date/Time Associated Diagnosis Comments POCT INFLUENZA B (ID NOW RAPID MOLECULAR) Routine 02/09/2025 7:08 PM EST Rash POCT INFLUENZA A (ID NOW RAPID MOLECULAR) Routine 02/09/2025 7:08 PM EST Rash POC PICHARDO ID NOW STREP A Routine 02/09/2025 7:08 PM EST Rash POCT RAPID COVID ANTIGEN Routine 02/09/2025 7:08 PM EST Rash documented in this encounter Results * POCT Rapid Strep A PICHARDO ID NOW (02/09/2025 7:08 PM EST) Rapid Strep A Screen Negative Negative, None Detected Swab 02/09/2025 7:08 PM EST Neyda ESCOBAR POINT OF CARE TEST ENTER/EDIT ORDERABLES Final Result * POCT Rapid Influenza B PICHARDO ID NOW (02/09/2025 7:08 PM EST) Pathologist [facility] Influenza B Negative Negative, Indeterminate [facility] Swab 02/09/2025 7:08 PM EST us Neyda Maxxo QUILL COLLECTOR POINT OF CARE TEST ENTER/EDIT ORDERABLES Final Result Performing Organization Address [facility]/ZIP Co de Phone Number [facility] [address] [place] [phone] * POCT Rapid Influenza A PICHARDO ID NOW (02/09/2025 7:08 PM EST) Influenza A Negative Negative, Indeterminate [facility] Swab 02/09/2025 7:08 PM EST us Neyda Ortizhipo QUILL COLLECTOR POINT OF CARE TEST ENTER/EDIT ORDERABLES Final Result Performing Organization Address [facility] Co de Phone Number [facility] [address] [place] [phone] * POCT Rapid Covid-19 BinaxNOW (02/09/2025 7:08 PM EST) Rapid COVID Ag Negative [facility] Swab 02/09/2025 7:08 PM EST Neyda Maxxo QUILL COLLECTOR POINT OF CARE TEST ENTER/EDIT ORDERABLES Final Result Performing Organization Address [facility] Co de Phone Number [facility] [address] [place] [phone] documented in this encounter Visit Diagnoses Diagnosis Rash Rash and other nonspecific skin eruption documented in this encounter Care Teams Supervisor Hot Dip Plating Relationship Specialty Start Date End Date Viviana Cook ANP [address] [place] [phone] PCP - General Family Medicine 12/07/22 documented as of this encounter
--- NOTE | ~2025-02-14 | XR_ITS ---
CLINICAL HISTORY: pain Radiographs of the left shoulder, 3 views Comparison: None available Findings: No fracture or dislocation. No degenerative change. No soft tissue swelling. Impression: Normal study. This document has been electronically signed by: Vianey Lee MD on 02/14/2025 17:13:48
--- NOTE | ~2025-02-14 | XR_ITS ---
CLINICAL HISTORY: pain Radiographs of the cervical spine, 3 views Comparison: None available Findings: Straightening of the normal cervical lordosis. No fracture. The vertebral body heights and intervertebral disc spaces are preserved. No osteophytosis or sclerosis. No prevertebral soft tissue swelling. Impression: Straightening of the normal cervical lordosis could be positional or secondary to muscle spasm. No degenerative change. This document has been electronically signed by: Vianey Lee MD on 02/14/2025 17:14:35
--- NOTE | 2025-02-14 15:34 | ED_ITS ---
HPI - General Adult General Chief complaint: General Medical Stated complaint: rt side pain Time Seen by Provider: 02/14/25 18:05 Source: patient, RN notes reviewed, old records reviewed and program proposals coordinator Mode of arrival: ambulatory Limitations: language barrier History of Present Illness ED Provider: Kalpana MCKINNON narrative: 39-year-old female presents for evaluation of neck pain and numbness in the left hand. Patient reports her symptoms started 3 days ago. She denies any previous neck problems pain Denies any injury pain Denies any falls pain She has no headache, fevers, chills. Denies any heavy lifting, twisting injuries. Related Data Previous Rx's ?Medication ?Instructions ?Recorded ondansetron 4 mg disintegrating 4 mg PO Q8H PRN nausea and 01/26/23 tablet vomiting 7 days #14 tabs cyclobenzaprine 10 mg tablet 10 mg PO TID PRN muscle s pasm #20 02/14/25 tabs ibuprofen 600 mg tablet 600 mg PO Q6H PRN pain #20 t abs 02/14/25 Allergies Allergy/AdvReac Type Severity Reaction Status Date / Time No Known Allergies Allergy Verified 02/14/25 15:39 Review of Systems Constitutional: Constitutional: Denies body ache(s), Denies chills, Denies fever(s) and Denies headache(s) Eyes: Eyes: Denies blurry vision ENT: Denies headache(s), Reports neck pain and Denies sore throat Cardiovascular: Cardiovascular: Denies chest pain and Denies dyspnea on exertion Respiratory: Respiratory: Denies cough and Denies dyspnea on exertion Gastrointestinal: Gastrointestinal: Denies abdominal pain Musculoskeletal: Musculoskeletal: Reports neck pain, Reports numbness, Reports radiating pain into limb, Reports stiffness and Reports tingling Integumentary/Breasts: Skin/Breast: Denies rash Neurologic: Denies headache(s), Reports numbness and Reports tingling PMFSH Social History Social History Advance Directives: No Advance Directives Information Provided: No Do you have a plan to hurt others: No Plan Physical Exam ED Vital Signs: Vital Signs - 24 hr 02/14/25 15:35 02/14/25 18:25 Temperature 97.3 F 98.0 F Pulse Rate 88 76 Respiratory Rate 16 16 Blood Pressure 113/68 116/62 Pulse Oximetry 99 99 Oxygen Delivery Method Room Air Room Air BMI result Body Mass Index 22.8 Const General: healthy appearing, comfortable, no acute distress, alert and awake Nutritional Appearance: well nourished Orientation/consciousness: patient oriented x3 HENMT Head: Yes normocephalic and Yes atraumatic Eyes Eyelids: Yes eyelids normal Conjunctivae: conjunctivae normal Sclerae: sclerae normal Corneas: corneas normal Pupils: Equal, round and reactive pupils present EOM: EOMs intact bilaterally Neck Neck: Yes full ROM Resp Effort & Inspection: normal respiratory effort, able to speak in complete sentences and not labored Back/Spine/Pelvis Other: The patient has tenderness to the left cervical paraspinous muscles and left trapezius muscle group. Skin General skin exam: no rashes or lesions noted and elasticity normal Neuro General: patient oriented x3 Cranial nerves: Yes Equal, round and reactive pupils present and Yes Bilaterally intact EOM present Cognition (Neuro): normal cognition Extrem Other: Moving all extremities well without any obvious deformities. Course Course Course Narrative: RME, this is a rapid medical exam performed by Juan Acuna please refer to [facility] provider for complete H&P- 39 year old female presents for evaluation of left sided arm and neck pain and numbness in the fingers. Plan for x-ray cervical spine and shoulder. Medical Decision Making Medical Decision Making [facility] Narrative: 39-year-old female presents for evaluation of left-sided neck pain and noticed some tingling going to the left hand. There was no obvious injury. No fevers or chills, no evidence of infectious signs or symptoms. She seems quite stiff to the left side of the neck and trapezius muscle group. Most consistent with a muscle spasm. Plan for x-rays of the cervical spine and left shoulder to evaluate for arthritic changes or obvious abnormalities. Differential Diagnosis Differential Diagnoses: The differential diagnosis associated with the presentation includes Cervical strain Spasmodic torticollis Arthritis Cervicalgia Radiology Impression Discussion of test interpretation with radiology: I have reviewed the r adiologist's reading. Radiologist Impression: Findings: Straightening of the normal cervical lordosis. No fracture. The vertebral body heights and intervertebral disc spaces are preserved. No osteophytosis or sclerosis. No prevertebral soft tissue swelling. Impression: Straightening of the normal cervical lordosis could be positional or secondary to muscle spasm. No degenerative change. This document has been electronically signed by: Vianey Lee MD on 02/14/2025 17:14:35 Findings: No fracture or dislocation. No degenerative change. No soft tissue swelling. Impression: Normal study. This document has been electronically signed by: Vianey Lee MD on 02/14/2025 17:13:48 Discharge Plan Discharge Clinical Impression: Cervicalgia Patient Disposition: Home, Self-Care Instructions: Neck Pain (ED) Additional Instructions: your x-ray shows muscle spasms in your neck. I suspect the numbness in your hand is likely due to a pinched nerve. Use ibuprofen and Tylenol as needed for pain. Use cyclobenzaprine as needed for muscle spasms. This may make you drowsy, do not drink alcohol or drive after taking it. You may use warm compresses as well. Return for new or worsening symptoms Prescriptions: New ibuprofen 600 mg tablet 600 mg PO Q6H PRN (Reason: pain) Qty: 20 0RF cyclobenzaprine 10 mg tablet 10 mg PO TID PRN (Reason: muscle spasm) Qty: 20 0RF No Action ondansetron 4 mg tablet,disintegrating 4 mg PO Q8H PRN (Reason: nausea and vomiting) 7 Days Qty: 14 0RF Interventions: ED Discharge Assessment Last Done: 02/14/25 18:25 Discharge Date/Time: 02/14/25 18:26 Print Language: Libyan
[2025-02-14 15:35] VITALS: BP 113/68; PULSE 88; RESP 16; TEMP 36.3; O2SAT 99; BMI 22.8
--- OUTSIDE RECORDS SUMMARY | 2025-02-14 18:24 | XMS_ITS | Encounter Summary ---
Author Organization [employer] Address [address] [facility] 7[address] [place] [address] Care Team Providers Care Psychiatric Assistant Name Role Phone Viviana Cook Primary Care Provider [phone] Encounter Details Date Type Department Care Team (Late st Contact Info) Description 12/10/2023 Orders Only [facility] [address] [place], [place] [phone] Viviana Cook ANP [address] [place] [address] Social History Tobacco Use Types Packs/Day Years Used Date Smoking Tobacco: Never Passive Smoke Exposure: Never Smokeless Tobacco: Never Alcohol Use Standard Drinks/Week Comments Not Currently 0 (1 standard drink = 0.6 oz pur e alcohol) Housing Stability Answer Date Recorded What is your housing situation today? I do not have housing (Staying with others, in a hotel, in a senior care, living outside on the street, on a [...] as of this encounter Plan of Treatment Upcoming Encounters Date Type Department Care Team (Late st Contact Info) Description 03/26/2025 1:00 PM EST Office Visit [facility] [address] [place] [address] Viviana Cook ANP [address] [place] [address] documented as of this encounter Procedures Procedure Name Priority Date/Time Associated Diagnosis Comments BACTERIAL VAGINOSIS PANEL Routine 12/09/2024 11:44 AM EDT PAP SMEAR Routine 11/14/2023 12:00 AM EDT documented in this encounter Results * Bacterial Vaginosis (12/09/2024 11:44 AM EDT) TRICHOMONAS VAGINALIS DETECTION BY PCR NOT DETECTED Not Detect [facility] BACTERIAL VAGINOSIS DETECTION BY PCR NEGATIVE Negative [facility] Comment:The BV organism targ ets of the Xpert Xpress MVP test can becommensal in women; Xpert Xpress MVP positive results forbacterial vaginosis should be considered in conjunction withother clinical and patient information to determine thedisease status. Organisms that are not detected by the XpertXpress MVP test have also been reported to be associatedwith BV and aerobic vaginitis.The Xpert Xpress MVP test performance has not been evaluatedin patients under the age of 14. ASHLEIGH GROUP DETECTION BY PCR NOT DETECTED Not Detect [facility] Ashleigh glab krusei PCR NOT DETECTED Not Detect [facility] 12/09/2024 11:4 4 AM EDT 12/09/2024 1:24 PM EDT us Kori Haji MD LAB MICROBIOLOGY - GENERAL ORDERABLES Final Result Performing Organization Address [facility]/ZIP Co de Phone Number [facility] [address] [place] [address] [phone] * Pap Smear (11/14/2023 12:00 AM EDT) Swab Historical Provider LAB CYTOLOGY ORDERABLES F inal Result Performing Organization Address [facility] Co de Phone Number EXTERNAL LAB documented in this encounter Visit Diagnoses Not on filedocumented in this encounter Care Teams Psychiatric Assistant Relationship Specialty Start Date End Date Viviana Cook ANP [address] [place] [phone] PCP - General Family Medicine 12/07/22 documented as of this encounter
--- OUTSIDE RECORDS SUMMARY | 2025-02-14 18:24 | XMS_ITS | Encounter Summary ---
Author Organization [employer] Address [address] [facility] 7t [place] [address] Care Team Providers Care Retrimmer Name Role Phone Viviana Cook Primary Care Provider [phone] Reason for Visit * Reason Onset Date Comments Referral 10/08/2023 Encounter Details Date Type Department Care Team (Late st Contact Info) Description 10/08/2023 Telephone [facility] [address] [place], [place] [phone] Viviana Cook ANP [address] [place] [address] Referral Social History Tobacco Use Types Packs/Day Years Used Date Smoking Tobacco: Never Passive Smoke Exposure: Never Smokeless Tobacco: Never Alcohol Use Standard Drinks/Week Comments Not Currently 0 (1 standard drink = 0.6 oz pur e alcohol) Housing Stability Answer Date Recorded What is your housing situation today? I do not have housing (Staying with others, in a hotel, in a alf, living outside on the street, on a [...] t he electric, gas, oil or water [employer] threatened to shut off services in your [...] calling in regards to the referral for evaluation specialist states would like something closer for commute documented in this encounter Plan of Treatment Upcoming Encounters Date Type Department Care Team (Late st Contact Info) Description 03/26/2025 1:00 PM EST Office Visit [facility] [address] [place] [address] Viviana Cook ANP [address] [place] [address] documented as of this encounter Visit Diagnoses Not on filedocumented in this encounter Care Teams Retrimmer Relationship Specialty Start Date End Date Viviana Cook ANP [address] [place] [address] PCP - General Family Medicine 12/07/22 documented as of this encounter
--- OUTSIDE RECORDS SUMMARY | 2025-02-14 18:24 | XMS_ITS | Clinical Summary ---
Author Organization [employer] Address [address] [place] [address] 7t [place] [address] Care Team Providers Care Retail Director Name Role Phone Lam Lui Primary Care Provider [phone] Allergies Active Allergy Reactions Criticality Noted Date Comments Azithromycin Anaphylaxis High 12/23/2024 Ciprofloxacin Anaphylaxis High 10/06/2024 Pt purchased med in Ibuprofen Anaphylaxis High 01/05/2025 Metronidazole Itching 12/23/2024 Peck skin itching all over when treated with vaginal metronidazole Medications omeprazole OTC (PriLOSEC OTC) 20 MG [...] by mouth at bedtime. 30 tablet 5 Active norethindrone (Micronor) 0.35 MG tablet TAKE 1 TABLET BY MOUTH EVERY DAY 84 tablet 5 Active metroNIDAZOLE (Metrogel) 0.75 % vaginal gelIndications:B acterial Vaginosis Insert one applicator into vagina at bedtime for 7 nights 45 g 5 Active clotrimazole (Lotrimin) 1 % vaginal creamIndications :Vulvovaginal Candidiasis Insert one applicator per vagina at bedtime for 7 nights 45 g 5 Active cetirizine (ZyrTEC) 10 MG tablet Take 1 tablet (10 mg) by mouth Once per day. 30 tablet 11 01/05/2025 5:49 PM EST 5 01/06/20 26 Active hydrOXYzine pamoate (Vistaril) 25 MG capsule Take 1 capsule (25 mg) by mouth every 6 (six) hours if needed for itching or allergies. 30 capsule 02/11/2025 1:44 PM EST 02/19/19 26 Active Active Problems Problem Noted Date Diagnosed Date Dermatitis 01/05/2025 Assessment & Plan (01/05/2025 4:17 PM EST): - On right side of neck - Prescribed prednisone with a tapering dose (7 tablets on day 1, then decreasing by one tablet per day until finished). - Continue topical Cerave - Prescribed Zyrtec daily - Information regarding allergy referral was given so she can to schedule the missed appointments -Get labs, ro thyroid disease/ high Ig E Adjustment insomnia 06/16/2024 Assessment & Plan (06/16/2024 [...] PFTs and CXR and follow-up with PCP Fatigue 06/28/2023 Assessment & Plan (06/28/2023 1:20 PM EDT): Probably related to increased frequency of hyperglycemic episodes as evidenced by progressively high A1c. I gave her information for proper diet to prevent pre-DM/DM Order labs to r/o thyroiditis Pelvic pain 10/17/2022 Assessment & Plan (12/09/2024 11:43 AM EDT): Orders: POCT Urine POCT urinalysis dipstick manually resulted (CPT 43831) Chlamydia/N. Gonorrhoeae RNA, TMA, Vagina Bacterial Vaginosis, Yeast and Trich; Future POCT Wet [place]/JAYCOB Acquired hypothyroidism 10/17/2022 Resolved Problems Problem Noted Date Diagnosed Date Resolved Date Decreased vision in both eyes 06/16/2024 08/12/2024 Assessment & Plan (06/16/2024 4:03 PM EDT): Referred to eye clinic Encounters Date Type Department Care Team Description 02/14/2025 Orders Only [facility] External Provider, [facility] 02/09/2025 7:00 PM EST [facility] [address] [address] Neyda Ybarra, LUZ Rash 02/09/2025 Travel 01/19/2025 Telephone [facility] [address] [place] [phone] Lam Lui ANP march recall 01/05/2025 10:20 AM EST Office Visit [address] [address] Felicia Starks MD Dermatitis (Primary Dx); Allergy history, drug 01/05/2025 Travel 12/09/2024 11:00 AM EDT Office Visit [address] [address] Kori Haji MD Vulvar irritation (Primary Dx); Candidiasis; Bacterial vaginosis 12/01/2024 Telephone [facility] [address] [place] [phone] Lam Lui ANP telephone call from Last 3 Months Immunizations Immunization Administration Dates Next Due Pfizer Covid-19 Vaccine [...] Health Questionnaire-2 Score 3 10/06/2024 Comments No Intention Date Recorded No desire to become (finding) 0 07/07/2024 Sex and Gender Information Value Date Recorded Sex Assigned at Female 10/20/2022 3:12 PM EDT Legal Sex Female 4:29 PM EDT Gender Identity Female 10/20/2022 3:12 PM EDT Sexual Orientation Bisexual 10/03/2024 1: 17 PM EDT Last Filed Vital Signs Vital Sign Reading Time Taken Comments Blood Pressure 114/73 02/09/2025 6:42 PM EST Pulse 78 02/09/2025 6:42 PM EST Temperature 36.6 C (97.9 F) 02/09/2025 6:42 PM EST Respiratory Rate 18 02/09/2025 6:42 PM EST Oxygen Saturation 100% 02/09/2025 6:42 PM EST Inhaled Oxygen Concentration - - Weight 60.3 kg (133 lb) 02/09/2025 6:42 PM EST Height 162.6 cm (5' 4 ) 01/05/2025 10:21 AM EST Body Mass Index 22.83 01/05/2025 10:21 AM EST Plan of Treatment Upcoming Encounters Date Type Department Care Team (Late st Contact Info) Description 03/26/2025 1:00 PM EST Office Visit [facility] [address] [place] [address] Lam Lui, ANP [address] [place] [address] Health Maintenance Due Date Last Done Comments HPV Vaccines (1 - 3-dose series) 10/20/1999 DTaP/Tdap/Td Vaccines (1 - Tdap) 10/20/2003 Hepatitis B Vaccines (1 of 3 - 19+ 3-dose series) 10/20/2003 SDOH Screening 11/29/2023 11/28/2022 Mammogram 2024 COVID-19 Vaccine (2 - 2024-2 6 season) 2024 07/04/2023 Influenza Vaccine (#1) 2024 Family Planning (PISQ) 07/07/2025 07/07/2024 Alcohol/Substance Use Screening 10/06/2025 10/06/2024 Depression Screening 10/06/2025 10/06/2024, 10/06/2024 Disability Screening 10/06/2025 10/06/2024 Tobacco Screening 01/05/2026 01/05/2025 Cervical Cancer Screening 11/13/2028 HPV/Cotest 11/13/2028 Pap [...] Years) and At-Risk Patients (6 to 49) Years Aged Out No longer eligible b ased on patient's age to complete this topic RSV under 20 months Aged Out No longe r eligible based on patient's age to complete this topic Rotavirus Vaccines Aged Out No longer eligible based on patient's age to complete this topic Procedures Procedure Name Priority Date/Time Associated Diagnosis Comments XR CERVICAL SPINE 3V Routine 02/14/2025 5:14 PM EST XR SHOULDER 2+ VIEWS LEFT Routine 02/14/2025 5:13 PM EST POC PICHARDO ID NOW STREP A Routine 02/09/2025 7:08 PM EST Rash POCT INFLUENZA B (ID NOW RAPID MOLECULAR) Routine 02/09/2025 7:08 PM EST Rash POCT INFLUENZA A (ID NOW RAPID MOLECULAR) Routine 02/09/2025 7:08 PM EST Rash POCT RAPID COVID ANTIGEN Routine 02/09/2025 7:08 PM EST Rash BACTERIAL VAGINOSIS PANEL Routine 12/09/2024 11:44 AM EDT CHLAMYDIA/N. GONORRHOEAE RNA, TMA, UROGENITAL Routine 12/09/2024 11:44 AM EDT Vulvar irritation POCT URINALYSIS DIPSTICK Routine 12/09/2024 11:24 AM EDT Vulvar irritation POCT , URINE Routine 12/09/2024 11:23 AM EDT Vulvar irritation PAP SMEAR Routine 11/14/2023 12:00 AM EDT HEPATITIS C AB W/REFL TO HCV RNA, QN, PCR Routine 12/07/2022 12:01 PM EDT Routine screening for STI (sexually transmitted infection) HIV ANTIBODY/ANTIGEN ([place] DPH) Routine 12/07/2022 12:01 PM EDT from Last 3 Months or Most Recently Relevant to Health Maintenance Results * XR CERVICAL SPINE 3V (02/14/2025 5:14 PM EST) Anatomical Region Laterality Modality Abdomen Radiographic Roxi ging 02/14/2025 5:14 PM EST Narrative 02/14/2025 5:15 PM EST [address] [address] XRay Report Signed Patient: Audrey Gonzales MR#: [id number] : 1985 Acct:[id number] Age/Sex: 39 / F ADM Date: 02/14/25 Loc: HO.ED Attending Dr: Ordering Physician: Geo Acuna Date of Service: 02/14/25 Procedure(s): XR cervical spine 3V Accession Number(s): [id number] cc: Geo Acuna; LAM LUI NP Reason for Exam: pain CLINICAL HISTORY: pain Radiographs of the cervical spine, 3 views Comparison: None available Findings: Straightening of the normal cervical lordosis. No fracture. The vertebral body heights and intervertebral disc spaces are preserved. No osteophytosis or sclerosis. No prevertebral soft tissue swelling. Impression: Straightening of the normal cervical lordosis could be positional or secondary to muscle spasm. No degenerative change. This document has been electronically signed by: Vianey Lee MD on 02/14/2025 17:14:35 Dictated By: Vianey Ma MD Signed By: <Electronically signed by Vianey Ma MD in OV> 02/14/251714 DD/ 13 TD/TT: 02/14/251713 Msws: Procedure Note Donotuseinterpreter, Image - 02/14/[address] [address] XRay Report Signed Patient: Audrey GonzalesMR#: [id number] : 1985Acct:[id number] Age/Sex: 39 / FADM Date: 02/14/25 Loc: HO.ED Attending Dr: Ordering Physician: Geo Acuna Date of Service: 02/14/25 Procedure(s): XR cervical spine 3V Accession Number(s): [id number] cc: Geo Acuna; LAM LUI NP Reason for Exam: pain CLINICAL HISTORY: pain Radiographs of the cervical spine, 3 views Comparison: None available Findings: Straightening of the normal cervical lordosis. No fracture. The vertebral body heights and intervertebral disc spaces are preserved. No osteophytosis or sclerosis. No prevertebral soft tissue swelling. Impression: Straightening of the normal cervical lordosis could be positional or secondary to muscle spasm. No degenerative change. This document has been electronically signed by: Vianey Lee MD on 02/14/2025 17:14:35 Dictated By: Vianey Ma MD Signed By: <Electronically signed by Vianey Ma MD in OV> 02/14/251714 DD/ 13 TD/TT: 02/14/251713 Msws: [facility] External Provider IMG XR PROCEDURES Edited Result - Final * XR Shoulder 2+ Views Left (02/14/2025 5:13 PM EST) Anatomical Region Laterality Modality Upper Extremities, Shoulder Left Radi ographic Imaging 02/14/2025 5:13 PM EST Narrative 02/14/2025 5:15 PM EST [address] [address] XRay Report Signed Patient: Audrey Gonzales MR#: [id number] : 1985 Acct:[id number] Age/Sex: 39 / F ADM Date: 02/14/25 Loc: HO.ED Attending Dr: Ordering Physician: Geo Acuna Date of Service: 02/14/25 Procedure(s): XR shoulder LT min 2V Accession Number(s): [id number] cc: Geo Acuna; LAM LUI NP Reason for Exam: pain CLINICAL HISTORY: pain Radiographs of the left shoulder, 3 views Comparison: None available Findings: No fracture or dislocation. No degenerative change. No soft tissue swelling. Impression: Normal study. This document has been electronically signed by: Vianey Lee MD on 02/14/2025 17:13:48 Dictated By: Vianey Ma MD Signed By: <Electronically signed by Vianey Ma MD in OV> 02/14/251714 DD/ 12 TD/TT: 02/14/251712 Msws: Procedure Note Donotuseinterpreter, Image - 02/14/[address] [address] XRay Report Signed Patient: Yajaira Gonzales#: [id number] : 1985Acct:[id number] Age/Sex: 39 / FADM Date: 02/14/25 Loc: HO.ED Attending Dr: Ordering Physician: Geo Acuna Date of Service: 02/14/25 Procedure(s): XR shoulder LT min 2V Accession Number(s): [id number] cc: Geo Acuna; LAM LUI NP Reason for Exam: pain CLINICAL HISTORY: pain Radiographs of the left shoulder, 3 views Comparison: None available Findings: No fracture or dislocation. No degenerative change. No soft tissue swelling. Impression: Normal study. This document has been electronically signed by: Vianey Lee MD on 02/14/2025 17:13:48 Dictated By: Vianey Ma MD Signed By: <Electronically signed by Vianey Ma MD in OV> 02/14/251714 DD/ 12 TD/TT: 02/14/251712 Msws: [facility] External Provider IMG XR PROCEDURES Edited Result - Final * POCT Rapid Influenza B PICHARDO ID NOW (02/09/2025 7:08 PM EST) Influenza B Negative Negative, Indeterminate [facility] Swab 02/09/2025 7:08 PM EST Neyda Ybarra AUTOMOBILE MECHANIC HELPER POINT OF CARE TEST ENTER/EDIT ORDERABLES Final Result [facility] [address] [place] [phone] * POCT Rapid Influenza A PICHARDO ID NOW (02/09/2025 7:08 PM EST) Influenza A Negative Negative, Indeterminate [facility] Swab 02/09/2025 7:08 PM EST Neyda Okhipo AUTOMOBILE MECHANIC HELPER POINT OF CARE TEST ENTER/EDIT ORDERABLES Final Result Performing Organization Address City/[facility]/ZIP Co de Phone Number [facility] [address] [place] [phone] * POCT Rapid Strep A PICHARDO ID NOW (02/09/2025 7:08 PM EST) [facility] Rapid Strep A Screen Negative Negative, None Detected Swab 02/09/2025 7:08 PM EST Neyda CIRQYhipo AUTOMOBILE MECHANIC HELPER POINT OF CARE TEST ENTER/EDIT ORDERABLES Final Result * POCT Rapid Covid-19 BinaxNOW (02/09/2025 7:08 PM EST) [facility] Rapid COVID Ag Negative [facility] Swab 02/09/2025 7:08 PM EST Neyda uGifto AUTOMOBILE MECHANIC HELPER POINT OF CARE TEST ENTER/EDIT ORDERABLES Final Result Performing Organization Address City/[facility]/ZIP Co de Phone Number [facility] [address] [place] [phone] * Bacterial Vaginosis (12/09/2024 11:44 AM EDT) [facility] TRICHOMONAS VAGINALIS DETECTION BY PCR NOT DETECTED Not Detect [facility] BACTERIAL VAGINOSIS DETECTION BY PCR NEGATIVE Negative [facility] Comment:The BV organism targ ets of [...] DETECTION BY PCR NOT DETECTED Not Detect [facility] Ashleigh glab krusei PCR NOT DETECTED Not Detect [facility] 12/09/2024 11:4 4 AM EDT 12/09/2024 1:24 PM EDT us Kori Haji MD LAB MICROBIOLOGY - GENERAL ORDERABLES Final Result [facility] [address] [place] [phone] * Chlamydia/N. Gonorrhoeae RNA, TMA, Vagina (12/09/2024 11:44 AM EDT) CT PCR NOT DETECTED Not Detect. [facility] Comment:A not detected test result does not exclude the possibilityof infection because test results can be affected byimproper specimen collection, concurrent antibiotic therapy,or the number of organisms in the specimen which may bebelow the sensitivity of the test. As with many diagnostictests, results from the Xpert CT/NG assay should beinterpreted in conjunction with other laboratory andclinical data available to the clinician.Xpert CT/NG performance has not been evaluated in patientsless than 14 years of age. The assay should not be used forthe evaluationof suspected sexual abuse or for other medico-legalindications. Additional testing is recommended in anycircumstance when false positive or false negative resultscould lead to adverse medical, social or psychologicalconsequences. NG PCR NOT DETECTED Not Detect. [facility] Comment:A not detected test result does not exclude the possibilityof infection because test results can be affected byimproper specimen collection, concurrent antibiotic therapy,or the number of organisms in the specimen which may bebelow the sensitivity of the test. As with many diagnostictests, results from the Xpert CT/NG assay should beinterpreted in conjunction with other laboratory andclinical data available to the clinician.Xpert CT/NG performance has not been evaluated in patientsless than 14 years of age. The assay should not be used forthe evaluationof suspected sexual abuse or for other medico-legalindications. Additional testing is recommended in anycircumstance when false positive or false negative resultscould lead to adverse medical, social or psychologicalconsequences. Swab Vaginal structure / Unknown 12/09/2024 11:44 AM EDT 12/09/2024 1:24 PM EDT Kori Haji MD LAB MICROBIOLOGY - GENERAL ORDERABLES Final Result [facility] [address] [place] [phone] * (ABNORMAL) POCT urinalysis dipstick manually resulted (CPT 75635) (12/09/2024 11:24 AM EDT) Color, UA Yellow Clarity, UA Clear Glucose, UA Negative Bilirubin, UA Trace Ketones, UA Negative Spec Grav, UA 1.030 Blood, UA Negative Negative, None Detected pH, UA 5.5 Protein, UA Negative Urobilinogen, UA 0.2 Leukocytes, UA Negative Negative, Rare, Trace Nitrite, UA Negative Negative, None Detected Appearance, UA yellow QC Media Lot # [id number] Lot# Expiration Date , Urine (Urine, Random) 12/09/2024 11:24 AM EDT us Kori Haji MD POINT OF CARE TEST ENTER/E DIT ORDERABLES Final Result * POCT Urine (12/09/2024 11:23 AM EDT) Preg Test, Ur Negative Negative, Indeterminate, None Detected, Invalid, Specimen unsatisfactory for evaluation, Weakly Positive, 2+ QC Media Lot # [id number] Lot# Expiration Date , Urine 12/09/2024 11:2 3 AM EDT Kori Haji MD POINT OF CARE TEST ENTER/E DIT ORDERABLES Final Result * Pap Smear (11/14/2023 12:00 AM EDT) Swab [facility] Provider MD LAB CYTOLOGY ORDERABLES F inal Result EXTERNAL LAB * HIV Ab/Ag ([facility]) (12/07/2022 12:01 PM EDT) HIV AB/AG Nonreactive Nonreactive [facility] Comment:HIV-1 p24 Ag and/or HIV-1/HIV-2 Ab not detected.A test result that is nonreactive does not exclude thepossibility of exposure to or infection with HIV-1 and/orHIV-2. Nonreactive results in this assay for individualswith prior exposure to HIV-1 and/or HIV-2 may be due toantigen and antibody levels that are below the limit ofdetection of this assay.[employer] HIV Ag/Ab Combo assay result andsupplemental assay results should be interpreted inconjunction with the patient's clinical presentation,history and other laboratory results. If the results areinconsistent with clinical evidence, additional testing issuggested to confirm the result. 12/07/2022 12:0 1 PM EDT 12/07/2022 1:11 PM EDT [facility] LAB BLOOD ORDERABLES Final Resul t Performing Organization Address City/[facility]/ZIP Co de Phone Number [facility] [address] [place] [phone] * Hepatitis C Antibody with Reflex to HCV, RNA, Quantitative, Real-Time PCR (12/07/2022 12:01 PM EDT) Pathologist [facility] Hepatitis C Antibody Nonreactive Nonreactive [facility] Comment:Antibodies to HCV no t detected; does not exclude early acuteHCV infection. Blood Venous blood specimen / Unknown 12/07/2022 12:01 PM EDT 12/07/2022 1:11 PM EDT Lam ROMAN LAB BLOOD ORDERABLES Final Resul t [facility] [address] [place] [address] [phone] from Last 3 Months or Most Recently Relevant to Health Maintenance Insurance FAD ? [employer] Member Subscriber Plan / Payer (Ef fective 2022-Present) Name:Audrey Gonzales Relation to Subscriber:Self Name:Audrey Gonzales Payer ID:Not on file Group ID:Not on file Type:Medicaid Address: [address] [employer] Member Subscriber Plan / Payer (Ef fective 2022-Present) Name:Audrey Gonzales Relation to Subscriber:Self Name:Audrey Gonzales Payer ID:Not on file Group ID:Not on file Type:Medicaid Address: [address] FULL Care Teams Retail Director Relationship Specialty Start Date End Date Lam Lui ANP [address] [place] [phone] PCP - General Family Medicine 12/07/22
--- OUTSIDE RECORDS SUMMARY | 2025-02-14 18:24 | XMS_ITS | Encounter Summary ---
Author Organization [email or web address] Address [address] [facility] [address]t [place] [address] Care Team Providers Care Fiberglass Auto Body Repairer Name Role Phone Lam Lui Primary Care Provider [phone] Encounter Details Date Type Department Care Team (Late st Contact Info) Description 02/14/2025 Orders Only [facility] External Provider, [facility] Social History Tobacco Use Types Packs/Day Years [...] Description 03/26/2025 1:00 PM EST Office Visit [facility] [address] [place], [place] [phone] Lam Lui ANP [address] [place], [place] [phone] documented as of this encounter Procedures Procedure Name Priority Date/Time Associated Diagnosis Comments XR CERVICAL SPINE 3V Routine 02/14/2025 5:14 PM EST XR SHOULDER 2+ VIEWS LEFT Routine 02/14/2025 5:13 PM EST documented in this encounter Results * XR CERVICAL SPINE 3V (02/14/2025 5:14 PM EST) Anatomical Region Laterality Modality Abdomen Radiographic Roxi ging 02/14/2025 5:14 PM EST Narrative 02/14/2025 5:15 PM EST [address] [address] XRay Report Signed Patient: Audrey Gonzales MR#: [id number] : 1985 Acct:[id number] Age/Sex: 39 / F ADM Date: 02/14/25 Loc: .ED Attending Dr: Ordering Physician: Geo Acuna Date of Service: 02/14/25 Procedure(s): XR cervical spine 3V Accession Number(s): [id number] cc: Geo Acuna; LAM LUI 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 Reason for Exam: pain CLINICAL HISTORY: pain [...] in OV> 02/14/251714 DD/ 13 TD/TT: 02/14/251713 Shovel Log Loader Operator: Procedure Note Donotuseinterpreter, Image - 02/14/[address] [address] XRay Report Signed Patient: Yajaira Gonzales#: [id number] : 1985Acct:[id number] Age/Sex: 39 / FADM Date: 02/14/25 Loc: .ED Attending Dr: Ordering Physician: Geo Acuna Date of Service: 02/14/25 Procedure(s): XR cervical spine 3V Accession Number(s): [id number] cc: Geo Acuna; LAM LUI NP Reason [...] in OV> 02/14/251714 DD/ 13 TD/TT: 02/14/251713 Shovel Log Loader Operator: [facility] External Provider IMG XR PROCEDURES Edited Result - Final * XR Shoulder 2+ Views Left (02/14/2025 5:13 PM EST) Anatomical Region Laterality Modality Upper Extremities, Shoulder Left Radi ographic Imaging 02/14/2025 5:13 PM EST Narrative 02/14/2025 5:15 PM EST [address] [address] XRay Report Signed Patient: Audrey Gonzales MR#: [id number] : 1985 Acct:[id number] Age/Sex: 39 / F ADM Date: 02/14/25 Loc: HO.ED Attending Dr: Ordering Physician: Geo Acuna Date of Service: 02/14/25 Procedure(s): XR shoulder LT min 2V Accession Number(s): [id number] cc: Geo Acuna; LAM LUI NP Reason [...] in OV> 02/14/251714 DD/ 12 TD/TT: 02/14/251712 Shovel Log Loader Operator: Procedure Note Donotuseinterpreter, Image - 02/14/[address] [address] XRay Report Signed Patient: Audrey GonzalesMR#: [id number] : 1985Acct:[id number] Age/Sex: 39 / FADM Date: 02/14/25 Loc: HO.ED Attending Dr: Ordering Physician: Geo Acuna Date of Service: 02/14/25 Procedure(s): XR shoulder LT min 2V Accession Number(s): [id number] cc: Geo Acuna; LAM LUI NP Reason [...] in OV> 02/14/251714 DD/ 12 TD/TT: 02/14/251712 Shovel Log Loader Operator: [facility] External Provider IMG XR PROCEDURES Edited Result - Final documented in this encounter Visit Diagnoses Not on filedocumented in this encounter Care Teams Fiberglass Auto Body Repairer Relationship Specialty Start Date End Date Lam Lui ANP [address] [place] [phone] PCP - General Family Medicine 12/07/22 documented as of this encounter
--- OUTSIDE RECORDS SUMMARY | 2025-02-14 18:24 | XMS_ITS | Clinical Summary ---
Author Organization [facility] ity Address [address] [place] [phone] Care Team Providers Care Boat Garnisher Name Role Phone Unavailable Primary Care Provider Unavailabl e Social History Tobacco Use Types Packs/Day Years Used Date Smoking Tobacco: Never Assessed Comments Unknown Sex and Gender Information Value Date Recorded Sex Assigned at Not on file Legal Sex Female 11:37 AM EDT Gender Identity Not on file Sexual Orientation Not on file Plan of Treatment Health Maintenance Due Date Last Done Comments Breast Cancer Screening 1985 DTaP,Tdap,and Td Vaccines (1 - Tdap) 10/20/2003 Hepatitis B Vaccines (1 of 3 - 19+ 3-dose series) 10/20/2003 Cervical Cancer Screening: P ap Smear 2005 HPV Vaccines (1 - 3-dose SCD M series) 10/20/2011 HIV Screening 11/29/2023 Hepatitis C Screening 11/29/2023 Social Influencers of Health Screening 11/29/2023 Depression Screening 02/20/2024 COVID-19 Vaccine (1 - 2024-2 6 season) 2024 Influenza Vaccine (#1) 2024 RSV Immunization Adult Patie nts (1 - 1-dose 75+ series) 10/20/2059 HIB Vaccines Aged Out No longer eligi [...] 5 Years) and At-Risk Patients (6 to 49 Years) Aged Out No longer eligible b ased on patient's age to complete this topic RSV Immunization Patients Un zhang 20 months Aged Out No longer eligible b ased on patient's age to complete this topic Varicella Vaccines Aged Out No longer eligible based on patient's age to complete this topic
--- OUTSIDE RECORDS SUMMARY | 2025-02-14 18:24 | XMS_ITS | Encounter Summary ---
Author Organization [employer] Address [address] [place] [address] 7 [place] [address] Care Team Providers Care Board Lining Machine Operator Name Role Phone Viviana Cook Primary Care Provider [phone] Encounter Details Date Type Department Care Team (Latest Contact Info) Description 02/09/2025 Travel Social History Tobacco Use Types Packs/Day Years Used Date Smoking Tobacco: Never Passive Smoke Exposure: Never Smokeless Tobacco: Never Alcohol Use Standard Drinks/Week Comments Not Currently 0 (1 standard drink = 0.6 oz pur e alcohol) Housing Stability Answer Date Recorded What is your housing situation today? I do not have housing (Staying with others, in a hotel, in a prison, living outside on the street, on a [...] 1:00 PM EST Office Visit [facility] [address] [place] [address] Viviana Cook ANP [address] [place] [address] documented as of this encounter Visit Diagnoses Not on filedocumented in this encounter Care Teams Board Lining Machine Operator Relationship Specialty Start Date End Date Viviana Cook ANP [address] [place] [id number] PCP - General Family Medicine 12/07/22 documented as of this encounter
--- OUTSIDE RECORDS SUMMARY | 2025-02-14 18:24 | XMS_ITS | Clinical Summary ---
Author Organization [facility] Address [address] [place] [address] Care Team Providers Care Customer Service Representative Teller Name Role Phone Viviana Cook Primary Care Provider [phone] Allergies Active Allergy Reactions Criticality Noted Date Comments Azithromycin Anaphylaxis High 12/23/2024 Ciprofloxacin Anaphylaxis High 10/06/2024 Pt purchased med in Metronidazole Itching 12/23/2024 [place] skin itching all over when treated with vaginal metronidazole Medications levothyroxine (SYNTHROID, LEVOTHROID) 75 mcg tablet SMARTSI Tablet(s) By Mouth Every Morning 4 Active norethindrone-e .estradioL-iron (Junel FE ,) 1.5 mg-30 mcg (21)/75 mg (7) per tablet Take 1 tablet by mouth once a day. 84 tablet 3 4 Active Additional Information Patient not taking.Reported on 12/23/2024 EPINEPHrine (EPIPEN) 0.3 mg/0.3 mL injection syringe SMARTSIG:IM As Directed 5 Active estradioL (ESTRACE) 0.01 % (0.1 mg/gram) vaginal cream Apply 1 gram (pea size) nightly inside and outside the vagina for 1 week, then 2-3 times a week 42.5 g 5 5 07/16/19 26 Active clotrimazole (LOTRIMIN) 1% vaginal cream Insert one applicator per vagina at bedtime for 7 nights 5 Active Encounters Date Type Department Care Team Description 01/21/2025 Telephone [facility] Obstetrics and Gynecology [address] [place] [address] Pocketed Spring Assembler: Nicolle La MD 01/02/2025 Telephone [facility] Obstetrics and Gynecology [address] [place] [address] Pocketed Spring Assembler: Nicolle La MD 12/23/2024 3:45 PM EST Office Visit [facility]s [facility]necology [address] [place] [address] Pocketed Spring Assembler: Nicolle La MD Dysmenorrhea (Primary Dx); Menorrhagia with regular cycle; Adenomyosis; History of urinary urgency; Urinary frequency 11/25/2024 Telephone [facility] Obstetrics and Gynecology [address] [place] [address] Pocketed Spring Assembler: Nicolle La MD 11/17/2024 3:30 PM EDT Office Visit [facility] Ob[facility]etrics and Gynecology [address] [place] [address] Pocketed Spring Assembler: Karena Ahumada NP Dysmenorrhea (Primary Dx); Abnormal urination from Last 3 Months Family History Medical History Relation Name Comments Prostate cancer Father's Brother Breast cancer Father's Sister 1 Breast cancer Father's Sister 2 Ovarian cancer Mother's Sister has chemot herapy Relation Name Status Comments Father's Brother Father's Sister 1 Father's Sister 2 Mother's Sister Alive Social History Tobacco Use Types Packs/Day Years [...] Sign Reading Time Taken Comments Blood Pressure 96/58 12/23/2024 3:11 PM EST Pulse - - Temperature - - Respiratory Rate - - Oxygen Saturation - - Inhaled Oxygen Concentration - - Weight 60.3 kg (133 lb) 12/23/2024 3:11 PM EST Height - - Body Mass Index - - Plan of Treatment Upcoming Encounters Date Type Department Care Team (Late st Contact Info) Description 04/01/2025 1:00 PM EST Office Visit [facility] [address] [address] Pocketed Spring Assembler: Noni Kent, Louann Quiroga, CHELLE [address] [place] [address] Scheduled Procedures Name Priority Associated Diagnoses Date/Ti me LAPAROSCOPIC TOTAL HYSTERECT FAUSTINO WITH REMOVAL OF TUBE(S) AND/OR OVARY(S) Dysmenorrhea Menorrhagia with regular cycle Adenomyosis Health Maintenance Due Date Last Done Comments HIV Screening 1984 HPV and Pap Smear 1984 Varicella Vaccines (1 of 2 - 13+ 2-dose series) 1997 Hepatitis B Vaccines (1 of 3 - 19+ 3-dose series) 10/20/2003 DTaP,Tdap,and Td Vaccines (1 - Tdap) 2006 Alcohol/Substance Use Screening 02/20/2024 Depression Screening and Follow-Up 02/20/2024 Social Drivers of Health Annual Screening 02/20/2024 Influenza Vaccine (#1) 2024 Mammogram 2024 COVID-19 Vaccine (2 - 2024-2 6 season) 2024 07/04/2023 Cervical Cancer Screening 11/13/2026 Pap Smear 11/13/2026 11/14/2023, 11/14/2023 Hepatitis C Screening Completed 12/07/2022 Pneumococcal Vaccine: Pediatric (0-5 Years) and At-Risk Patients (6-50 Years) Aged Out No longer eligible based on patient's age to complete this topic Procedures * Due to [place] state law, this organization might not be sharing negative HIV tests. Procedure Name Priority Date/Time Associated Diagnosis Comments PAP Routine 11/14/2023 5:16 PM EDT Cervical cancer screening from Last 3 Months or Most Recently Relevant to Health Maintenance Results * Due to [place] state law, this organization might not be sharing negative HIV tests. * Pap (11/14/2023 5:16 PM EDT) Specimen Adequacy Satisfactory for evaluation [facility] MANUAL 4 9:36 AM EDT [facility] Pathologist Cytology Interpretation Negative for intraepithelial lesion or malignancy. [facility] MANUAL 4 9:36 AM EDT [facility] at 0936 EDT Comment:This is the result o f a morphological screening test with an inherent possibility of a false negative interpretation. 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 This Pap test was examined in accordance with the [facility] Cytopathology Laboratory written policy, which incorporates all CLIA mandates. Current screening guidelines can be found in [place]: A Cancer Journal for Clinicians 2020;70:321-346. Current [facility]P management guidelines for abnormal Pap tests are published in the Journal Lower Genital Tract Disease Volume 2020;24:102-131. [facility] MANUAL 4 9:36 AM EDT [facility] Clinical History CERVICAL CANCER SCREENING [facility] MANUAL 4 9:36 AM EDT [facility] Report Header Gynecologic Cytology Report Case: [id number] Authorizing Provider: Mya Juarez MD Collected: 11/14/2023 1716 Ordering Location: [facility] Received: 11/14/2023 1816 [facility] Obstetrics and Gynecology First Screen: Rafita Morales Specimen: Screening ThinPrep Pap, Cervix/Endocervix 9:36 AM EDT [facility] Brushing Cervix uteri structure / Unknown Non-Blood Collection / Unknown 11/14/2023 5:16 PM EDT 11/14/2023 6:16 PM EDT us Mya Juarez MD LAB PATHOLOGY/CYTOLOGY ORDERABLE S Final Result [facility] [address] [place] [id number], from Last 3 Months or Most Recently Relevant to Health Maintenance Insurance [facility] HSNO/FREE CARE Care Teams Customer Service Representative Teller Relationship Specialty Start Date End Date Viviana Cook [address] [place] [id number] PCP - General 09/28/23
--- OUTSIDE RECORDS SUMMARY | 2025-02-14 18:24 | XMS_ITS | Encounter Summary ---
Author Organization [employer] Address [address] [place] [address] [address] [place] [address] Care Team Providers Care Typesetters Printer Name Role Phone Viviana Cook Primary Care Provider [phone] Reason for Visit * Reason Onset Date Comments Results 11/10/2022 Encounter Details Date Type Department Care Team (Late st Contact Info) Description 11/10/2022 Telephone [facility] MEDICINE [address] [place] [address] Viviana Cook ANP [address] [place] [address] Results Social History Tobacco Use Types Packs/Day [...] 12:04 PM EDT T/C to pt. Through [facility] id - [id number] for below message, pt. Was informed regarding normal lab result. Pt. Verbally agreed and understood. Pt. Advised to give call back on [phone] any questions or concerns. * Telephone Encounter - Eliana Ruiz - 11/10/2022 9:30 AM EDT Tc from pt requesting a call in regards to results on 10/17 labs. Please contact pt at [phone] (Niuean) documented in this encounter Plan of Treatment Upcoming Encounters Date Type Department Care Team (Late st Contact Info) Description 03/26/2025 1:00 PM EST Office Visit [facility] MEDICINE [address] [place] [address] Viviana Cook ANP [address] [place] [address] documented as of this encounter Visit Diagnoses Not on filedocumented in this encounter Care Teams Typesetters Printer Relationship Specialty Start Date End Date Viviana Cook ANP [address] [place] [id number] PCP - General Family Medicine 12/07/22 documented as of this encounter
[2025-02-14 18:25] VITALS: BP 116/62; PULSE 76; RESP 16; TEMP 36.7; O2SAT 99
== END 2025-02-14 18:26 | disposition home or self-care (01) ==
LOC: HO.ED 18:21
PROVIDERS: Emergency Provider Student in an Organized Health Care Education/Training Program; PCP Nurse Practitioner Primary Care
DX: M54.2 Cervicalgia (principal)
CPT/HCPCS: 72040; 73030; 99282; 99283

== ENCOUNTER → 2025-02-14 15:34 | Outpatient (BNV) | payer MEDICAID, SELFPAY | PROVIDERS: PCP Nurse Practitioner Primary Care; Visit Provider Radiology Diagnostic Radiology | DX: M54.2 Cervicalgia (principal); M25.512 Pain in left shoulder | CPT/HCPCS: 72040; 73030 ==